=== PATIENT | female | born 1945 | race Hispanic/Latino ===

== ENCOUNTER 2016-11-04 21:59 | Inpatient (IN) | payer MEDICARE ==
[2016-11-04 21:59] VITALS: BMI 29.5
[2016-11-04] MEDS ORDERED: cefTRIAXone IV 1 gm in Dextros 1 GM in Dextrose 5% In Water 50 ML IVPB STA (22:47)
[2016-11-04 23:04] LABS: BASO # 0.1 K/uL (0.0-0.2); BASO % 0.6 % (0.0-2.0); EOS % 0.2 % (0.0-4.0); HEMATOCRIT 41.9 % (34.0-47.0); LYMPH # 0.8 K/uL (1.0-4.3); LYMPH % 4.3 % (20.0-40.0); MEAN CORPUSCULAR HEMOGLOBIN 28.2 pg (27.0-31.0); MEAN CORPUSCULAR HGB CONC 32.7 g/dL (33.0-37.0); MEAN PLATELET VOLUME 10.3 fL (7.2-11.7); MONO # 0.9 K/uL (0.0-0.8); MONO % 4.8 % (0.0-10.0); PLATELET COUNT 212 K/uL (130-400); RED CELL DISTRIBUTION WIDTH 14.7 % (11.5-14.5); WHITE BLOOD COUNT 18.5 K/uL (4.8-10.8)
[2016-11-04 23:09] LABS: MEAN CELL VOLUME 86.4 fL (81.0-99.0)
[2016-11-04] MEDS ORDERED: cefTRIAXone IV 1 gm in Dextros 50 ML IVPB ONE (23:19)
[2016-11-04 23:21] LABS: VENOUS BLOOD GAS PCO2 40 mmHg (40-60); VENOUS BLOOD PH 7.47 (7.32-7.43)
[2016-11-04 23:26] LABS: CHLORIDE 92 mmol/L (98-107); POTASSIUM 3.6 mmol/L (3.6-5.2); SODIUM 134 mmol/L (132-148)
[2016-11-04 23:28] LABS: GFR AFRICAN-AMERICAN > 60
[2016-11-04 23:29] LABS: ALB/GLOB RATIO 1.2 (1.0-2.1); ALKALINE PHOSPHATASE 118 U/L (38-126); ALT/SGPT 72 U/L (9-52); AST/SGOT 64 U/L (14-36); BILIRUBIN,TOTAL 2.3 mg/dL (0.2-1.3); BLOOD UREA NITROGEN 19 mg/dL (7-17); CALCIUM 8.9 mg/dl (8.6-10.4); CARBON DIOXIDE 25 mmol/L (22-30); GLUCOSE,RANDOM 158 mg/dL (65-105); TOTAL PROTEIN 8.1 g/dL (6.3-8.3)
[2016-11-04 23:46] LABS: INR 1.6
[2016-11-04 23:48] LABS: EOSINOPHIL 1 % (0-4); NEUTROPHIL 81 % (50-75); TOTAL CELLS COUNTED 100
[2016-11-04 23:49] LABS: LARGE PLATELETS PRESENT
[2016-11-04] MEDS ORDERED: Sodium Chloride 0.9% 1,000 ML IV ONE (23:53)
--- NOTE | 2016-11-05 00:18 | C.PDOC ---
History Of Present Illness A 71 y/o F c/o cramping abdominal pain but does not know how long. Pain is to the right leg with erythema and tenderness. Denies fever, chills, nausea, vomiting, diarrhea, weakness, numbness, vaginal bleeding, discharge, or any other complaints. Time Seen by Provider: 11/04/16 22:30 Chief Complaint (Nursing): Abdominal Pain History Per: Patient History/Exam Limitations: no limitations Onset/Duration Of Symptoms: Unknown Current Symptoms Are (Timing): Still Present Severity: Mild Radiation Of Pain To:: None Recent travel outside of the [place]: No Additional History Per: Patient Abnormal Vaginal Bleeding: No Past Medical History Reviewed: Historical Data, Nursing Documentation, Vital Signs Vital Signs: Last Vital Signs Temp 100.2 F H 11/04/16 22:30 Pulse 92 H 11/04/16 23:41 Resp 16 11/04/16 23:41 BP 108/78 11/04/16 23:41 Pulse Ox 96 11/05/16 00:36 - Medical History PMH: Asthma, Atrial Fibrillation, Bronchitis, Cardia Arrhythmia (atrial fib), Diabetes, Fractures (left hand), HTN, Hypercholesterolemia, Hypothyroidism, Rheumatoid Arthritis, Sleep Apnea Denies: Chronic Kidney Disease - [facility] Procedures ABDOMINAL WALL INCISION (01/07/15) CLOSURE SKIN & SUBCUTANEOUS NEC (08/03/13) DESTRUCT ABD WALL LESION (12/08/14) EXC LES SOFT TISSUE NEC (12/08/14) POST NASAL PAC FOR EPIST (09/18/12) TETANUS TOXOID ADMINIST (08/03/13) Family History: States: Unknown Family Hx, CAD - Social History Hx Tobacco Use: No Hx Alcohol Use: No Hx Substance Use: No - Immunization History Hx Tetanus Toxoid Vaccination: No Hx Influenza Vaccination: No Hx Pneumococcal Vaccination: Yes Review Of Systems Except As Marked, All Systems Reviewed And Found Negative. Constitutional: Negative for: Fever, Chills Gastrointestinal: Positive for: Abdominal Pain. Negative for: Nausea, Vomiting , Diarrhea Musculoskeletal: Positive for: Leg Pain (Right leg pain and erythema) Neurological: Negative for: Weakness, Numbness Physical Exam - Physical Exam Appears: Non-toxic, No Acute Distress, Other (Obese) Skin: Warm, Dry Head: Atraumatic, Normacephalic Gastrointestinal/Abdominal: Soft, Tenderness (vague ), Other (Dull to percussion ) Extremity: Tenderness (Tenderness and erythema between the ankle and ratliff, circumferential), Capillary Refill (<2secs) Extremity: Bilateral: Normal Color And Temperature Neurological/Psych: Oriented x3, Normal Speech, Normal Cognition ED Course And Treatment - Laboratory Results Result Diagrams: 11/04/16 22:59 11/04/16 22:59 Lab Interpretation: Abnormal (INR 1.5 subtheraputic for Coumadin for AF, Lactate 2.7 H) ECG: Interpreted By Me ECG Rhythm: Atrial Fibrillation ECG Interpretation: Normal, No Changes From Prior Rate From EC O2 Sat by Pulse Oximetry: 96 (RA) Pulse Ox Interpretation: Normal - Radiology CXR: Interpreted by Me CXR Interpretation: Yes: No Acute Disease - Other Rad abd x 2 X-Ray: Interpreted by Me (+FOS) Reevaluation Time: 00:16 Reassessment Condition: Improved - Physician Consult Information Outcome Of Conversation: 2300: d/w Dr. Parra- prior admitting MD, ok to med /surg. Pendin CT results. Medical Decision Making Medical Decision Making: Impression: A 71 y/o F c/o cramping abdominal pain but does not know how long. Pain is to the right leg with erythema and tenderness. cellulitis R lower leg: Rocephin IV Belly pain: CT pending Subtheraputic INR for AF; consider re-loading or increasing dose. ALEKSANDRA; pending CPAP for sleep. 0030: signed out to Dr. Tee, and again d/w Dr. Parra- pending CT abd/ pelvis and results. Disposition Doctor Will See Patient In The: Hospital Counseled Patient/Family Regarding: Studies Performed, Diagnosis - Disposition Disposition: HOSPITALIZED Disposition Time: 00:18 Condition: GOOD - Clinical Impression Clinical Impression: Abdominal pain, Cellulitis, leg, Constipation - Scribe Statement The provider has reviewed the documentation as recorded by the Scribe José Miguel rush All medical record entries made by the Carlosibmaggie were at my direction and personally dictated by me. I have reviewed the chart and agree that the record accurately reflects my personal performance of the history, physical exam, medical decision making, and the department course for this patient. I have also personally directed, reviewed, and agree with the discharge instructions and disposition. Physician Patient Turnover Patient Signed Over To: Michael Tee Handoff Comments: follow-up CT abd/pelvis and review with Dr. Parra.
[2016-11-05] MEDS ORDERED: Iodixanol 320 MG/ML 100 ML BOTTLE IV ONE (00:29)
[2016-11-05 01:48] LABS: VENOUS BLOOD GAS BASE EXCESS 3.7 mmol/L (0.0-2.0); VENOUS BLOOD GAS PCO2 39 mmHg (40-60); VENOUS BLOOD PH 7.46 (7.32-7.43)
[2016-11-05 02:08] LABS: RBC URINE 4 /hpf (0-3); URINE BACTERIA RARE (<OCC); URINE BILIRUBIN NEGATIVE (NEGATIVE); URINE BLOOD NEGATIVE (NEGATIVE); URINE COLOR Yellow (YELLOW); URINE GLUCOSE (UA) NORMAL (Normal); URINE KETONE NEGATIVE (NEGATIVE); URINE LEUKOCYTE ESTERASE 3+ Leu/uL (Negative); URINE PROTEIN 1+ mg/dL (NEGATIVE); URINE UROBILINOGEN NORMAL mg/dL (0.2-1.0); WBC URINE 97 /hpf (0-5)
--- NOTE | 2016-11-05 02:55 | CT ---
EXAM: CT Abdomen and Pelvis With Intravenous Contrast CLINICAL HISTORY: 71 years old, female; Pain; Abdominal pain; Prior surgery; Patient HX: 9-4-15 report faxed; Additional info: Jacoby magana'jimmy, TECHNIQUE: Axial computed tomography images of the abdomen and pelvis with intravenous contrast. This CT exam was performed using one or more of the following dose reduction techniques: automated exposure control, adjustment of the mA and/or kV according to patient size, and/or use of iterative reconstruction technique. Coronal and sagittal reformatted images were created and reviewed. CONTRAST: 100 mL of visipaque administered intravenously. COMPARISON: No relevant prior studies available. Reference is made to a report from an examination performed in 2015, for which the images were not available. FINDINGS: Lower thorax: The bilateral lung bases are clear. ABDOMEN: Liver: The liver is enlarged, and demonstrates decreased attenuation, consistent with steatosis, unchanged (by report). Gallbladder and bile ducts: The gallbladder is decompressed. No calcified stones. No significant intra- or extrahepatic biliary ductal dilation. Pancreas: Enhances homogeneously. Prominence of the main pancreatic duct is identified without andrez dilatation or a discrete mass identified. Spleen: Borderline enlargement, without acute findings. Adrenals: No acute findings. Kidneys and ureters: No acute findings. No hydronephrosis or renal calculi. No discrete solid mass. PELVIS: Bladder: No acute findings. Reproductive: No acute findings. Appendix: The appendix is not definitively visualized, however no pericecal inflammatory changes identified to suggest the presence of acute appendicitis. ABDOMEN and PELVIS: Stomach and bowel: No obstruction. Small bowel wall thickening but no surrounding inflammation or fluid to confirm an acute enteritis. Peritoneum: No significant fluid collection. No free air. Lymph nodes: No pathologically enlarged lymph nodes. Vasculature: Unremarkable. Bones: No acute fracture. IMPRESSION: Fatty infiltration of an enlarged liver. Small bowel wall thickening without surrounding inflammation or fluid to confirm an acute enteritis.
[2016-11-05] MEDS: Piperacillin/Tazobact 3.375 GM in Sodium Chloride 100 ML IVPB SCH ×3 (02:56→18:05)
[2016-11-05] MEDS: (Novolin R) Insulin Human Regular 100 units/ml vial SC SCH ×4 (07:38→22:41)
[2016-11-05] MEDS: Potassium Chloride 20 mEq ER Tab PO SCH (09:34)
[2016-11-05] MEDS ORDERED: DILTIAZEM 180 MG PO SCH (10:00)
[2016-11-05] MEDS ORDERED: DIGOXIN 125 MCG PO SCH (10:00)
[2016-11-05] MEDS: Oxycodone/Acetaminophen 5/325 mg Tab PO PRN ×2 (10:47→21:27)
--- NOTE | 2016-11-05 11:18 | RAD ---
PROCEDURE: Radiographs of the chest and abdomen (obstructive series) HISTORY: abd discomfort COMPARISON: No prior. TECHNIQUE: AP radiograph of the chest, with upright and supine radiographs of the abdomen. FINDINGS: CHEST: Lungs: Clear. Cardiovascular: Normal size heart. No pulmonary vascular congestion. Pleura: No pleural fluid. No pneumothorax. Other findings: None. ABDOMEN AND PELVIS: Bowel: [id number] constipation. Otherwise unremarkable bowel gas pattern. No evidence of mechanical obstruction. Free air: None. Bones: Unremarkable. Other findings: None. IMPRESSION: [id number] constipation. Otherwise unremarkable radiographs of chest and abdomen. No evidence of mechanical bowel obstruction.
--- NOTE | 2016-11-05 17:14 | CP.PCM.HP ---
History of Present Illness - History of Present Illness History of Present Illness: 71 y/o F c/o cramping abdominal pain but does not know how long. Pain is to the right leg with erythema and tenderness. Denies fever, chills, nausea, vomiting, diarrhea, weakness, numbness, vaginal bleeding, discharge, or any other complaints. Present on Admission - Present on Admission Any Indicators Present on Admission: No History of DVT/PE: No History of Uncontrolled Diabetes: No Urinary Catheter: No Decubitus Ulcer Present: No Review of Systems - Review of Systems All systems: reviewed and no additional remarkable complaints except (As mentioned in HPI) Past Patient History - Infectious Disease Hx of Infectious Diseases: None - Past Medical History & Family History Past Medical History?: Yes - Past Social History Smoking Status: Never Smoked - CARDIAC Hx Atrial Fibrillation: Yes Hx Cardia Arrhythmia: Yes (atrial fib) Hx Hypercholesterolemia: Yes Hx Hypertension: Yes - PULMONARY Hx Asthma: Yes Hx Bronchitis: Yes Hx Sleep Apnea: Yes - NEUROLOGICAL Hx Neurological Disorder: No - HEENT Hx HEENT Problems: Yes Hx Cataracts: Yes (bilateral iol) - RENAL Hx Chronic Kidney Disease: No - ENDOCRINE/METABOLIC Hx Hypothyroidism: Yes - HEMATOLOGICAL/ONCOLOGICAL Hx Blood Disorders: No - INTEGUMENTARY Hx Dermatological Problems: No - MUSCULOSKELETAL/RHEUMATOLOGICAL Hx Falls: No Hx Fractures: Yes (left hand) Hx Rheumatoid Arthritis: Yes - GASTROINTESTINAL Hx Gastrointestinal Disorders: No - GENITOURINARY/GYNECOLOGICAL Hx Genitourinary Disorders: Yes Hx Urinary Tract Infection: Yes (chronic pt. states asymptomatic) - PSYCHIATRIC Hx Substance Use: No - SURGICAL HISTORY Hx Surgeries: Yes Hx Cataract Extraction: Yes (bilat eyes) Hx Joint Replacement: Yes (bilat knees) Hx Tubal Ligation: Yes (30 years ago) Other/Comment: 2 cyst removed near middle chest region [address] Villavicencio - ANESTHESIA Hx Anesthesia: Yes Hx Anesthesia Reactions: No Hx Malignant Hyperthermia: No Meds Home Medications: Home Medication List Medication Instructions Recorded Confirmed Type Potassium Chloride [K-Dur 20] 20 meq PO BID #60 tab 11/11/16 Rx Warfarin [Coumadin] 8 mg PO DAILY #30 tab 11/11/16 Rx Allergies/Adverse Reactions: Allergies Allergy/AdvReac Type Severity Reaction Status Date / Time pregabalin [From Lyrica] Allergy Verified 01/02/16 13:11 Physical Exam - Head Exam Head Exam: NORMAL INSPECTION - Eye Exam Eye Exam: Normal appearance - ENT Exam ENT Exam: Mucous Membranes Moist - Respiratory Exam Respiratory Exam: Clear to Auscultation Bilateral, NORMAL BREATHING PATTERN - Cardiovascular Exam Cardiovascular Exam: REGULAR RHYTHM, +S1, +S2 - GI/Abdominal Exam GI & Abdominal Exam: Normal Bowel Sounds, Soft - Extremities Exam Additional comments: Right lower extremity edema, erythema, tenderness and warmth to touch - Neurological Exam Neurological exam: Alert, Oriented x3 - Psychiatric Exam Psychiatric exam: Normal Affect, Normal Mood - Skin Skin Exam: Warm Results - Vital Signs Recent Vital Signs: Last Vital Signs Temp 98.7 F 11/05/16 07:36 Pulse 89 11/05/16 07:36 Resp 20 11/05/16 07:36 BP 147/88 11/05/16 07:36 Pulse Ox 96 11/05/16 07:36 - Labs Result Diagrams: 11/10/16 07:03 11/11/16 06:23 Labs: Laboratory Results - last 24 hr 11/05/16 11/05/16 11/05/16 01:43 01:46 06:06 pO2 44 VBG pH 7.46 H VBG pCO2 39 L VBG HCO3 27.4 VBG Total CO2 28.9 H VBG O2 Sat (Calc) 88.2 H VBG Base Excess 3.7 H VBG Potassium 3.6 Sodium 137.0 Chloride 101.0 Glucose 155 H Lactate 2.1 POC Glucose (mg/dL) 151 H Venous Blood Potassium 3.6 Urine Color Yellow Urine Clarity Clear Urine pH 7.0 Ur Specific [place] 1.009 Urine Protein 1+ H Urine Glucose (UA) Normal Urine Ketones Negative Urine Blood Negative Urine Nitrate Positive H Urine Bilirubin Negative Urine Urobilinogen Normal Ur Leukocyte Esterase 3+ H Urine WBC (Auto) 97 H Urine RBC (Auto) 4 H Ur Squamous Epith Cells < 1 Urine Bacteria Rare 11/05/16 11/05/16 11:33 16:24 pO2 VBG pH VBG pCO2 VBG HCO3 VBG Total CO2 VBG O2 Sat (Calc) VBG Base Excess VBG Potassium Sodium Chloride Glucose Lactate POC Glucose (mg/dL) 149 H 107 Venous Blood Potassium Urine Color Urine Clarity Urine pH Ur Specific [place] Urine Protein Urine Glucose (UA) Urine Ketones Urine Blood Urine Nitrate Urine Bilirubin Urine Urobilinogen Ur Leukocyte Esterase Urine WBC (Auto) Urine RBC (Auto) Ur Squamous Epith Cells Urine Bacteria Assessment & Plan - Assessment and Plan (Free Text) Assessment: Right lower extremity cellulitis A. fib Hypokalemia Asthma IV Vanco and Zosyn Plan cultures Follow-up Vanco levels ID consult Right lower extremity Doppler Replace potassium Bronchodilators Dose daily Coumadin playground monitor
[2016-11-05] MEDS: Digoxin 125 mcg (0.125 mg) Tab PO SCH (18:07)
[2016-11-06] MEDS: Piperacillin/Tazobact 3.375 GM in Sodium Chloride 100 ML IVPB SCH ×3 (01:25→18:14)
[2016-11-06 07:16] LABS: BASO # 0.1 K/uL (0.0-0.2); BASO % 0.9 % (0.0-2.0); EOS # 0.2 K/uL (0.0-0.7); EOS % 2.1 % (0.0-4.0); HEMATOCRIT 38.8 % (34.0-47.0); LYMPH # 1.1 K/uL (1.0-4.3); MEAN CELL VOLUME 86.2 fL (81.0-99.0); MEAN CORPUSCULAR HGB CONC 33.7 g/dL (33.0-37.0); MEAN PLATELET VOLUME 10.2 fL (7.2-11.7); MONO # 0.9 K/uL (0.0-0.8); MONO % 8.6 % (0.0-10.0); RED CELL DISTRIBUTION WIDTH 14.8 % (11.5-14.5); WHITE BLOOD COUNT 10.1 K/uL (4.8-10.8)
[2016-11-06 07:22] LABS: INR 1.5
[2016-11-06 07:37] LABS: CHLORIDE 98 mmol/L (98-107); POTASSIUM 2.6 mmol/L (3.6-5.2); SODIUM 140 mmol/L (132-148)
[2016-11-06 07:39] LABS: BILIRUBIN,TOTAL 3.1 mg/dL (0.2-1.3); GFR AFRICAN-AMERICAN > 60
[2016-11-06 07:40] LABS: ALKALINE PHOSPHATASE 96 U/L (38-126); ALT/SGPT 69 U/L (9-52); AST/SGOT 51 U/L (14-36); BLOOD UREA NITROGEN 13 mg/dL (7-17); CALCIUM 8.2 mg/dl (8.6-10.4); CARBON DIOXIDE 27 mmol/L (22-30); GLUCOSE,RANDOM 123 mg/dL (65-105)
[2016-11-06] MEDS: (Novolin R) Insulin Human Regular 100 units/ml vial SC SCH ×4 (08:15→22:01)
[2016-11-06] MEDS: diltiaZEM 180 mg/24 Hours CD Cap PO SCH (09:37)
[2016-11-06] MEDS: Potassium Chloride 20 mEq ER Tab PO SCH (09:37)
--- NOTE | 2016-11-06 14:17 | CP.PCM.PN ---
Subjective - Date & Time of Evaluation Date of Evaluation: 11/06/16 Time of Evaluation: 14:17 - Subjective Subjective: Patient seen and examined No events overnight Reports right lower extremity pain Objective - Vital Signs/Intake and Output Vital Signs (last 24 hours): Temp Pulse Resp BP Pulse Ox 98.1 F 73 18 119/69 95 11/06/16 07:30 11/06/16 09:48 11/06/16 07:30 11/06/16 09:48 11/06/16 07:30 Intake and Output: 11/06/16 11/06/16 06:59 18:59 Intake Total 160 Balance 160 - Medications Medications: Current Medications Allopurinol (Zyloprim) 300 mg PO DAILY [facility] Last Admin: 11/06/16 09:38 Dose: 300 mg Digoxin (Lanoxin) 0.125 mg PO DAILY@1800 [facility] Last Admin: 11/05/16 18:07 Dose: 0.125 mg Diltiazem HCl (Cardizem Cd) 180 mg PO DAILY [facility] Last Admin: 11/06/16 09:37 Dose: 180 mg Gabapentin (Neurontin) 100 mg PO TID [facility] Last Admin: 11/06/16 14:13 Dose: 100 mg Glimepiride (Amaryl) 4 mg PO BID [facility] Last Admin: 11/06/16 09:38 Dose: 4 mg Piperacillin Sod/Tazobactam (Sod 3.375 gm/ Sodium Chloride) 100 mls @ 200 mls/ hr IVPB Q8H [facility] Last Admin: 11/06/16 09:36 Dose: 200 mls/hr Vancomycin HCl 1,000 mg/ (Sodium Chloride) 250 mls @ 166.6 mls/hr IVPB Q12H [facility] Last Admin: 11/06/16 14:13 Dose: 166.6 mls/hr Insulin Human Regular (Novolin R) 0 unit SC ACHS ANITA PRN Reason: Protocol Last Admin: 11/06/16 12:53 Dose: 2 unit Oxycodone/Acetaminophen (Percocet 5/325 Mg Tab) 1 tab PO Q6H PRN PRN Reason: Pain, Stop: 11/08/16 10:02 Last Admin: 11/05/16 21:27 Dose: 1 tab Potassium Chloride (K-Dur 20 Meq Er Tab) 20 meq PO DAILY [facility] Last Admin: 11/06/16 09:37 Dose: 20 meq Sitagliptin Phosphate (Januvia) 100 mg PO DAILY [facility] Last Admin: 11/06/16 09:38 Dose: 100 mg Torsemide (Demadex) 100 mg PO DAILY [facility] Last Admin: 11/06/16 09:43 Dose: 100 mg Warfarin Sodium (Coumadin) 5 mg PO [facility] - Labs Labs: 11/06/16 07:08 11/06/16 07:08 PT 16.7 SECONDS (9.7-12.2) H 11/06/16 07:08 INR 1.5 11/06/16 07:08 APTT 30 SECONDS (21-34) 11/06/16 07:08 - Head Exam Head Exam: NORMAL INSPECTION - Eye Exam Eye Exam: Normal appearance - ENT Exam ENT Exam: Mucous Membranes Moist - Respiratory Exam Respiratory Exam: Clear to Ausculation Bilateral, NORMAL BREATHING PATTERN - Cardiovascular Exam Cardiovascular Exam: REGULAR RHYTHM, +S2 - GI/Abdominal Exam GI & Abdominal Exam: Soft, Normal Bowel Sounds - Neurological Exam Neurological Exam: Oriented x3 Assessment and Plan - Assessment and Plan (Free Text) Assessment: Right lower extremity cellulitis A. fib Hypokalemia Asthma IV Vanco and Zosyn Follow-up Vanco levels ID consult appreciated Right lower extremity Doppler is negative for DVT Potassium supplementation Bronchodilators Dose daily Coumadin Check INR in the morning DVT GI prophylaxis
[2016-11-06] MEDS ORDERED: Potassium Chloride 20 mEq/15 ml LIQ UD PO ONE (14:19)
[2016-11-06 16:24] LABS: CHLORIDE 98 mmol/L (98-107); POTASSIUM 3.8 mmol/L (3.6-5.2); SODIUM 139 mmol/L (132-148)
[2016-11-06 16:26] LABS: GFR AFRICAN-AMERICAN > 60
[2016-11-06 16:27] LABS: ALKALINE PHOSPHATASE 95 U/L (38-126); ALT/SGPT 68 U/L (9-52); AST/SGOT 40 U/L (14-36); BILIRUBIN,TOTAL 2.7 mg/dL (0.2-1.3); BLOOD UREA NITROGEN 14 mg/dL (7-17); CALCIUM 8.5 mg/dl (8.6-10.4); CARBON DIOXIDE 27 mmol/L (22-30); GLUCOSE,RANDOM 139 mg/dL (65-105)
--- NOTE | 2016-11-06 16:27 | CP.PCM.CON ---
History of Present Illness - History of Present Illness History of Present Illness: A 71 y/o F admitted with fever abdominal pain and severe right leg cellulitis associated with rigors stared empirically on vanco / zosyn with some improvement remains bed bound and right leg still swollen / red cultures are pending - Medical History PMH: Asthma, Atrial Fibrillation, Bronchitis, Cardia Arrhythmia (atrial fib), Diabetes, Fractures (left hand), HTN, Hypercholesterolemia, Hypothyroidism, Rheumatoid Arthritis, Sleep Apnea, bilat TKR's Denies: Chronic Kidney Disease - [facility] Procedures ABDOMINAL WALL INCISION (01/07/15) CLOSURE SKIN & SUBCUTANEOUS NEC (08/03/13) DESTRUCT ABD WALL LESION (12/08/14) EXC LES SOFT TISSUE NEC (12/08/14) POST NASAL PAC FOR EPIST (09/18/12) TETANUS TOXOID ADMINIST (08/03/13) Review of Systems - Review of Systems All systems: reviewed and no additional remarkable complaints except - Constitutional Constitutional: As Per HPI, Anorexia, Fever, Malaise, Weakness - EENT Eyes: absent: As Per HPI, Blind Spots, Blurred Vision, Change in Vision, Decreased Night Vision, Diplopia, Discharge, Dry Eye, Exophthalmos, Floaters, Irritation, Itchy Eyes, Loss of Peripheral Vision, Pain, Photophobia, Requires Corrective Lenses, Sees Flashes, Spots in Vision, Tunnel Vision, Other Visual Disturbances, Loss of Vision, Other Ears: absent: As Per HPI, Decreased Hearing, Ear Discharge, Ear Pain, Tinnitus, Abnormal Hearing, Disequilibrium, Dizziness, Other Nose/Mouth/Throat: absent: As Per HPI, Epistaxis, Nasal Congestion, Nasal Discharge, Nasal Obstruction, Nasal Trauma, Nose Pain, Post Nasal Drip, Sinus Pain, Sinus Pressure, Bleeding Gums, Change in Voice, Dental Pain, Dry Mouth, Dysphagia, Halitosis, Hoarsness, Lip Swelling, Mouth Lesions, Mouth Pain, Odynophagia, Sore Throat, Throat Swelling, Tongue Swelling, Facial Pain, Neck Pain, Neck Mass, Other - Breasts Breasts: absent: As Per HPI, Change in Shape, Mass, Pain, Nipple Discharge, Nipple Inversion, Skin Changes, Swelling, Other - Cardiovascular Cardiovascular: absent: As Per HPI, Acrocyanosis, Chest Pain, Chest Pain at Rest , Chest Pain with Activity, Claudication, Diaphoresis, Dyspnea, Dyspnea on Exertion, Edema, Irregular Heart Rhythm, Pain Radiating to Arm/Neck/Jaw, Leg Edema, Leg Ulcers, Lightheadedness, Orthopnea, Palpitations, Paroxysmal Nocturnal Dyspnea, Pedal Edema, Radiating Pain, Rapid Heart Rate, Slow Heart Rate, Syncope, Other - Respiratory Respiratory: absent: As Per HPI, Cough, Dyspnea, Hemoptysis, Dyspnea on Exertion , Wheezing, Snoring, Stridor, Pain on Inspiration, Chest Congestion, Excessive Mucous Production, Change in Mucous Color, Pain with Coughing, Other - Gastrointestinal Gastrointestinal: Abdominal Pain - Genitourinary Genitourinary: absent: As Per HPI, Change in Urinary Stream, Difficulty Urinating, Dysuria, Flank Pain, Hematuria, Pyuria, Nocturia, Urinary Incontinence, Urinary Frequency, Urinary Hesitance, Urinary Urgency, Voiding Freq/Small Amts, Freq UTI, Hx Renal/Bladder Calculi, Hx /Renal Surgery, Bladder Distension, Other - Reproductive: Female Reproductive:Female: absent: As Per HPI, Amenorrhea, Amenorrhea/ Control, Currently Menstual, Cycle <21 Days, Cycle >35 Days, Cycle Variable, Menses 1-7 Days, Menses >/= 8 Days, Menses Variable, Cycle > 4 Weeks Between, No Menses for 6 Months, Heavy Menses, Light Menses, Normal Menses, Spotting Between Cycles , S/P Hysterectomy, Menopausal, Post Menopausal, Premenarche, Abnormal Vaginal Bleeding, Dysmenorrhea, Dyspareunia, Genital Lesions, Genital Pruritis, Pelvic Pain, Prolapse Symptoms, Sexual Dysfunction, Vaginal Discharge, Vaginal Dryness , Vaginal Odor, Vaginal Pruritis, Other - Menstruation Menstruation: absent: As Per HPI, Amenorrhea, Amenorrhea/ Control, Currently Menstual, Cycle <21 Days, Cycle >35 Days, Cycle Variable, Menses 1-7 Days, Menses >/= 8 Days, Menses Variable, Cycle > 4 Weeks Between, No Menses for 6 Months, Heavy Menses, Light Menses, Normal Menses, Spotting Between Cycles , S/P Hysterectomy, Menopausal, Post Menopausal, Premenarche, Abnormal Vaginal Bleeding, Dysmenorrhea, Other - Musculoskeletal Musculoskeletal: As Per HPI - Integumentary Integumentary: As Per HPI, Skin Pain, Wounds - Neurological Neurological: As Per HPI, Sensory Deficit, Tingling - Psychiatric Psychiatric: absent: As Per HPI, Abnormal Sleep Pattern, Anhedonia, Anxiety, Auditory Hallucinations, Behavioral Changes, Change in Appetite, Change in Libido, Confusion, Depression, Difficulty Concentrating, Hallucinations, Homicidal Ideation, Hopelessness, Irritability, Memory Loss, Mood Swings, Panic Attacks, Paranoia, Suicidal Ideation, Visual Hallucinations, Tactile Hallucinations, Other - Endocrine Endocrine: absent: As Per HPI, Change in Body Appearance, Change in Libido, Cold Intolorance, Deepening of Voice, Excessive Sweating, Fatigue, Flushing, Heat Intolorance, Increase in Ring/Shoe/Hat Size, Palpitations, Polydipsia, Polyphagia, Polyuria, Other - Hematologic/Lymphatic Hematologic: absent: As Per HPI, Easy Bleeding, Easy Bruising, Lymphadenopathy, Other Past Patient History - Infectious Disease Hx of Infectious Diseases: None - Past Medical History & Family History Past Medical History?: Yes - Past Social History Smoking Status: Never Smoked - CARDIAC Hx Atrial Fibrillation: Yes Hx Cardia Arrhythmia: Yes (atrial fib) Hx Hypercholesterolemia: Yes Hx Hypertension: Yes - PULMONARY Hx Asthma: Yes Hx Bronchitis: Yes Hx Sleep Apnea: Yes - NEUROLOGICAL Hx Neurological Disorder: No - HEENT Hx HEENT Problems: Yes Hx Cataracts: Yes (bilateral iol) - RENAL Hx Chronic Kidney Disease: No - ENDOCRINE/METABOLIC Hx Hypothyroidism: Yes - HEMATOLOGICAL/ONCOLOGICAL Hx Blood Disorders: No - INTEGUMENTARY Hx Dermatological Problems: No - MUSCULOSKELETAL/RHEUMATOLOGICAL Hx Falls: No Hx Fractures: Yes (left hand) Hx Rheumatoid Arthritis: Yes - GASTROINTESTINAL Hx Gastrointestinal Disorders: No - GENITOURINARY/GYNECOLOGICAL Hx Genitourinary Disorders: Yes Hx Urinary Tract Infection: Yes (chronic pt. states asymptomatic) - PSYCHIATRIC Hx Substance Use: No - SURGICAL HISTORY Hx Surgeries: Yes Hx Cataract Extraction: Yes (bilat eyes) Hx Joint Replacement: Yes (bilat knees) Hx Tubal Ligation: Yes (30 years ago) Other/Comment: 2 cyst removed near middle chest region [address] Villavicencio - ANESTHESIA Hx Anesthesia: Yes Hx Anesthesia Reactions: No Hx Malignant Hyperthermia: No Meds Allergies/Adverse Reactions: Allergies Allergy/AdvReac Type Severity Reaction Status Date / Time pregabalin [From Lyrica] Allergy Verified 01/02/16 13:11 - Medications Medications: Current Medications Allopurinol (Zyloprim) 300 mg PO DAILY [facility] Last Admin: 11/06/16 09:38 Dose: 300 mg Digoxin (Lanoxin) 0.125 mg PO DAILY@1800 [facility] Last Admin: 11/05/16 18:07 Dose: 0.125 mg Diltiazem HCl (Cardizem Cd) 180 mg PO DAILY [facility] Last Admin: 11/06/16 09:37 Dose: 180 mg Gabapentin (Neurontin) 100 mg PO TID [facility] Last Admin: 11/06/16 14:13 Dose: 100 mg Glimepiride (Amaryl) 4 mg PO BID [facility] Last Admin: 11/06/16 09:38 Dose: 4 mg Piperacillin Sod/Tazobactam (Sod 3.375 gm/ Sodium Chloride) 100 mls @ 200 mls/ hr IVPB Q8H [facility] Last Admin: 11/06/16 09:36 Dose: 200 mls/hr Vancomycin/Sodium Chloride (Vancocin) 1 gm in 200 mls @ 166.6 mls/hr IVPB Q12H [facility] Insulin Human Regular (Novolin R) 0 unit SC ACHS [facility] PRN Reason: Protocol Last Admin: 11/06/16 12:53 Dose: 2 unit Oxycodone/Acetaminophen (Percocet 5/325 Mg Tab) 1 tab PO Q6H PRN PRN Reason: Pain, Stop: 11/08/16 10:02 Last Admin: 11/05/16 21:27 Dose: 1 tab Potassium Chloride (K-Dur 20 Meq Er Tab) 20 meq PO DAILY [facility] Last Admin: 11/06/16 09:37 Dose: 20 meq Sitagliptin Phosphate (Januvia) 100 mg PO DAILY [facility] Last Admin: 11/06/16 09:38 Dose: 100 mg Torsemide (Demadex) 100 mg PO DAILY [facility] Last Admin: 11/06/16 09:43 Dose: 100 mg Warfarin Sodium (Coumadin) 5 mg PO 1800 [facility] Stop: 11/06/16 18:01 Physical Exam - Constitutional Appears: Non-toxic, Chronically Ill - Head Exam Head Exam: ATRAUMATIC, NORMAL INSPECTION, NORMOCEPHALIC - Eye Exam Eye Exam: PERRL. absent: Scleral icterus - ENT Exam ENT Exam: Mucous Membranes Dry, Normal External Ear Exam, Normal Oropharynx - Neck Exam Neck exam: Negative for: Lymphadenopathy - Respiratory Exam Respiratory Exam: Decreased Breath Sounds, Clear to Auscultation Bilateral - Cardiovascular Exam Cardiovascular Exam: REGULAR RHYTHM, +S1, +S2 - GI/Abdominal Exam GI & Abdominal Exam: Diminished Bowel Sounds, Distended, Soft. absent: Tenderness - Rectal Exam Rectal Exam: Deferred - Exam Exam: NORMAL INSPECTION - Extremities Exam Extremities exam: Positive for: pedal edema, tenderness, pedal pulses present. Negative for: calf tenderness, normal inspection Additional comments: redness and swelling right leg below knee / not related to incision site of right TKR - Back Exam Back exam: absent: CVA tenderness (L), CVA tenderness (R) - Neurological Exam Neurological exam: Alert, CN II-XII Intact, Oriented x3, Reflexes Normal - Psychiatric Exam Psychiatric exam: Normal Mood - Skin Skin Exam: Dry Results - Vital Signs Recent Vital Signs: Last Vital Signs Temp 97.9 F 11/06/16 15:08 Pulse 74 11/06/16 15:08 Resp 20 11/06/16 15:08 BP 120/81 11/06/16 15:08 Pulse Ox 97 11/06/16 15:08 - Labs Result Diagrams: 11/06/16 07:08 11/06/16 07:08 Labs: Laboratory Results - last 24 hr 11/05/16 11/05/16 11/06/16 16:24 22:05 06:28 WBC RBC Hgb Hct MCV MCH MCHC RDW Plt Count MPV Neut % (Auto) Lymph % (Auto) [place] % (Auto) Eos % (Auto) Baso % (Auto) Neut # Lymph # [place] # Eos # Baso # PT INR APTT Sodium Potassium Chloride Carbon Dioxide Anion Gap BUN Creatinine Est GFR ( Amer) Est GFR (Non-Af Amer) POC Glucose (mg/dL) 107 112 H 125 H Random Glucose Calcium Total Bilirubin AST ALT Alkaline Phosphatase Total Protein Albumin Globulin Albumin/Globulin Ratio 11/06/16 11/06/16 11/06/16 07:08 07:08 07:08 WBC 10.1 RBC 4.50 Hgb 13.1 Hct 38.8 MCV 86.2 MCH 29.0 MCHC 33.7 RDW 14.8 H Plt Count 178 MPV 10.2 Neut % (Auto) 77.4 H Lymph % (Auto) 11.0 L [place] % (Auto) 8.6 Eos % (Auto) 2.1 Baso % (Auto) 0.9 Neut # 7.8 H Lymph # 1.1 [place] # 0.9 H Eos # 0.2 Baso # 0.1 PT 16.7 H INR 1.5 APTT 30 Sodium 140 Potassium 2.6 L Chloride 98 Carbon Dioxide 27 Anion Gap 18 BUN 13 Creatinine 0.8 Est GFR ( Amer) > 60 Est GFR (Non-Af Amer) > 60 POC Glucose (mg/dL) Random Glucose 123 H Calcium 8.2 L Total Bilirubin 3.1 H AST 51 H D ALT 69 H Alkaline Phosphatase 96 Total Protein 7.0 Albumin 3.5 D Globulin 3.4 Albumin/Globulin Ratio 1.0 11/06/16 11:16 WBC RBC Hgb Hct MCV MCH MCHC RDW Plt Count MPV Neut % (Auto) Lymph % (Auto) [place] % (Auto) Eos % (Auto) Baso % (Auto) Neut # Lymph # [place] # Eos # Baso # PT INR APTT Sodium Potassium Chloride Carbon Dioxide Anion Gap BUN Creatinine Est GFR ( Amer) Est GFR (Non-Af Amer) POC Glucose (mg/dL) 193 H Random Glucose Calcium Total Bilirubin AST ALT Alkaline Phosphatase Total Protein Albumin Globulin Albumin/Globulin Ratio Assessment & Plan (1) Abdominal pain Status: Acute (2) Cellulitis, leg Status: Acute (3) Diabetes Status: Acute (4) MRSA (methicillin resistant Staphylococcus aureus) Status: Suspected Priority: High - Assessment and Plan (Free Text) Assessment: 71 yo female with multiple comorbidities including RA, HTN, DM, arrythmias as well as recurrent MRSA infections is admitted with cellulitis assoc with rigors and abd pain improving on current rx cultures of blood pending would recc cont IV rx for now
[2016-11-06] MEDS: Digoxin 125 mcg (0.125 mg) Tab PO SCH (18:28)
[2016-11-07] MEDS: Piperacillin/Tazobact 3.375 GM in Sodium Chloride 100 ML IVPB SCH ×2 (01:56→10:10)
[2016-11-07] MEDS: Vancomycin 1 gm/NS 200 ml 1 GM/200 ML BAG IVPB SCH ×2 (01:57→14:08)
[2016-11-07] MEDS: (Novolin R) Insulin Human Regular 100 units/ml vial SC SCH ×4 (08:14→21:36)
[2016-11-07] MEDS: Potassium Chloride 20 mEq ER Tab PO SCH (10:09)
[2016-11-07] MEDS: diltiaZEM 180 mg/24 Hours CD Cap PO SCH (10:10)
[2016-11-07] MEDS: Oxycodone/Acetaminophen 5/325 mg Tab PO PRN (10:19)
--- NOTE | 2016-11-07 12:25 | CP.PCM.PN ---
Subjective - Date & Time of Evaluation Date of Evaluation: 11/07/16 Time of Evaluation: 08:00 - Subjective Subjective: afeb c/o Diarrhea LFT's increased cellulitis less will d/c zosyn cont Vanco add cefepime GI eval Objective - Vital Signs/Intake and Output Vital Signs (last 24 hours): Temp Pulse Resp BP Pulse Ox 98 F 80 18 137/70 97 11/07/16 09:06 11/07/16 09:06 11/07/16 09:06 11/07/16 09:06 11/07/16 09:06 - Medications Medications: Current Medications Allopurinol (Zyloprim) 300 mg PO DAILY [facility] Last Admin: 11/07/16 10:09 Dose: 300 mg Digoxin (Lanoxin) 0.125 mg PO DAILY@1800 [facility] Last Admin: 11/06/16 18:28 Dose: 0.125 mg Diltiazem HCl (Cardizem Cd) 180 mg PO DAILY [facility] Last Admin: 11/07/16 10:10 Dose: 180 mg Gabapentin (Neurontin) 100 mg PO TID [facility] Last Admin: 11/07/16 10:09 Dose: 100 mg Glimepiride (Amaryl) 4 mg PO BID [facility] Last Admin: 11/07/16 10:09 Dose: 4 mg Guaifenesin/Dextromethorphan (Robitussin Dm) 5 ml PO Q6H PRN PRN Reason: Cough Vancomycin/Sodium Chloride (Vancocin) 1 gm in 200 mls @ 166.6 mls/hr IVPB Q12H [facility] Last Admin: 11/07/16 01:57 Dose: 166.6 mls/hr Insulin Human Regular (Novolin R) 0 unit SC ACHS [facility] PRN Reason: Protocol Last Admin: 11/07/16 08:14 Dose: 2 unit Oxycodone/Acetaminophen (Percocet 5/325 Mg Tab) 1 tab PO Q6H PRN PRN Reason: Pain, Stop: 11/08/16 10:02 Last Admin: 11/07/16 10:19 Dose: 1 tab Potassium Chloride (K-Dur 20 Meq Er Tab) 20 meq PO DAILY [facility] Last Admin: 11/07/16 10:09 Dose: 20 meq Sitagliptin Phosphate (Januvia) 100 mg PO DAILY [facility] Last Admin: 11/07/16 10:09 Dose: 100 mg Torsemide (Demadex) 100 mg PO DAILY [facility] Last Admin: 11/07/16 10:15 Dose: 100 mg - Labs Labs: 11/06/16 07:08 11/06/16 16:13 PT 16.7 SECONDS (9.7-12.2) H 11/06/16 07:08 INR 1.5 11/06/16 07:08 APTT 30 SECONDS (21-34) 11/06/16 07:08 - Constitutional Appears: Non-toxic, Chronically Ill - Head Exam Head Exam: NORMOCEPHALIC - Eye Exam Eye Exam: absent: Scleral icterus - ENT Exam ENT Exam: Mucous Membranes Dry, Normal External Ear Exam - Neck Exam Neck Exam: absent: Lymphadenopathy - Respiratory Exam Respiratory Exam: Decreased Breath Sounds, Clear to Ausculation Bilateral - Cardiovascular Exam Cardiovascular Exam: REGULAR RHYTHM - GI/Abdominal Exam GI & Abdominal Exam: Distended, Soft. absent: Tenderness Assessment and Plan (1) Abdominal pain Status: Acute (2) Cellulitis, leg Status: Acute (3) Diabetes Status: Acute (4) MRSA (methicillin resistant Staphylococcus aureus) Status: Suspected
--- NOTE | 2016-11-07 12:44 | CARD ---
APPROVED REPORT EKG Measurement Heart [id number] <Conclusion> Atrial fibrillation Right superior axis deviation Pulmonary disease pattern Septal infarct, age undetermined Abnormal ECG
[2016-11-07] MEDS: Cefepime IV 1 gm in Dextrose 1 GM/50 ML BAG IVPB SCH (14:00)
--- NOTE | 2016-11-07 17:27 | CP.PCM.PN ---
Subjective - Date & Time of Evaluation Date of Evaluation: 11/07/16 Time of Evaluation: 17:27 - Subjective Subjective: Patient seen and examined Improved erythema of right lower extremity Objective - Vital Signs/Intake and Output Vital Signs (last 24 hours): Temp Pulse Resp BP Pulse Ox 97.7 F 66 20 108/72 97 11/07/16 15:45 11/07/16 15:45 11/07/16 15:45 11/07/16 15:45 11/07/16 15:45 Intake and Output: 11/07/16 11/07/16 06:59 18:59 Intake Total 300 Balance 300 - Medications Medications: Current Medications Allopurinol (Zyloprim) 300 mg PO DAILY [facility] Last Admin: 11/07/16 10:09 Dose: 300 mg Digoxin (Lanoxin) 0.125 mg PO DAILY@1800 [facility] Last Admin: 11/06/16 18:28 Dose: 0.125 mg Diltiazem HCl (Cardizem Cd) 180 mg PO DAILY [facility] Last Admin: 11/07/16 10:10 Dose: 180 mg Gabapentin (Neurontin) 100 mg PO TID [facility] Last Admin: 11/07/16 16:21 Dose: 100 mg Glimepiride (Amaryl) 4 mg PO BID [facility] Last Admin: 11/07/16 10:09 Dose: 4 mg Guaifenesin/Dextromethorphan (Robitussin Dm) 5 ml PO Q6H PRN PRN Reason: Cough Vancomycin/Sodium Chloride (Vancocin) 1 gm in 200 mls @ 166.6 mls/hr IVPB Q12H [facility] Last Admin: 11/07/16 14:08 Dose: 166.6 mls/hr Cefepime HCl (Maxipime Iv 1 Gm Premix) 1 gm in 50 mls @ 100 mls/hr IVPB Q12H [facility] Last Admin: 11/07/16 14:00 Dose: 100 mls/hr Insulin Human Regular (Novolin R) 0 unit SC ACHS [facility] PRN Reason: Protocol Last Admin: 11/07/16 12:40 Dose: 2 unit Oxycodone/Acetaminophen (Percocet 5/325 Mg Tab) 1 tab PO Q6H PRN PRN Reason: Pain, Stop: 11/08/16 10:02 Last Admin: 11/07/16 10:19 Dose: 1 tab Potassium Chloride (K-Dur 20 Meq Er Tab) 20 meq PO DAILY [facility] Last Admin: 11/07/16 10:09 Dose: 20 meq Sitagliptin Phosphate (Januvia) 100 mg PO DAILY [facility] Last Admin: 11/07/16 10:09 Dose: 100 mg Torsemide (Demadex) 100 mg PO DAILY [facility] Last Admin: 11/07/16 10:15 Dose: 100 mg - Labs Labs: 11/06/16 07:08 11/06/16 16:13 PT 16.7 SECONDS (9.7-12.2) H 11/06/16 07:08 INR 1.5 11/06/16 07:08 APTT 30 SECONDS (21-34) 11/06/16 07:08 - Head Exam Head Exam: NORMAL INSPECTION - ENT Exam ENT Exam: Mucous Membranes Moist - Cardiovascular Exam Cardiovascular Exam: REGULAR RHYTHM, +S1, +S2 - GI/Abdominal Exam GI & Abdominal Exam: Soft, Normal Bowel Sounds - Extremities Exam Additional comments: Right lower extremity erythema and swelling - Neurological Exam Neurological Exam: Alert, Oriented x3 - Psychiatric Exam Psychiatric exam: Normal Affect, Normal Mood Assessment and Plan - Assessment and Plan (Free Text) Assessment: Right lower extremity cellulitis A. fib Hypokalemia Asthma IV Vanco and Zosyn Right lower extremity Doppler is negative for DVT Potassium supplementation Bronchodilators Dose daily Coumadin Follow INR DVT GI prophylaxis
[2016-11-07] MEDS: guaiFENesin DM 100 mg-10 mg/5 ml UD PO PRN (18:38)
[2016-11-07] MEDS: Digoxin 125 mcg (0.125 mg) Tab PO SCH (18:38)
[2016-11-07 20:04] LABS: INR 1.4
[2016-11-08] MEDS: Cefepime IV 1 gm in Dextrose 1 GM/50 ML BAG IVPB SCH ×3 (00:13→23:44)
[2016-11-08 07:29] LABS: INR 1.4
[2016-11-08] MEDS: (Novolin R) Insulin Human Regular 100 units/ml vial SC SCH ×4 (08:20→21:34)
--- NOTE | 2016-11-08 09:20 | US ---
HISTORY: elevated liver enzymes COMPARISON: CT abdomen and pelvis with contrast performed 11/05/16 TECHNIQUE: Sonographic evaluation of the right upper quadrant of the abdomen. FINDINGS: LIVER: Measures 23.8 cm in length. Echogenic liver may be seen in setting of hepatic parenchymal disease or fatty infiltration. No focal mass identified. The main portal vein appears patent with normal directional flow. No intrahepatic bile duct dilatation. GALLBLADDER: No gallstones. No gallbladder wall thickening or pericholecystic edema. Negative sonographic Moore's sign as assessed by the ticket taker. COMMON BILE DUCT: Measures 4 mm. PANCREAS: Not well-visualized. RIGHT KIDNEY: Measures 12.0 x 3.8 x 5.9 cm. No obstructing calculus or hydronephrosis identified. AORTA: Limited visualization appears grossly unremarkable. IVC: Limited visualization appears grossly unremarkable. OTHER FINDINGS: None . IMPRESSION: Hepatomegaly. Echogenic liver may be seen in setting of hepatic parenchymal disease or fatty infiltration.
[2016-11-08] MEDS: diltiaZEM 180 mg/24 Hours CD Cap PO SCH (10:44)
[2016-11-08] MEDS: Potassium Chloride 20 mEq ER Tab PO SCH (10:45)
[2016-11-08] MEDS: guaiFENesin DM 100 mg-10 mg/5 ml UD PO PRN (10:46)
--- NOTE | 2016-11-08 11:55 | CP.PCM.PN ---
Subjective - Date & Time of Evaluation Date of Evaluation: 11/08/16 Time of Evaluation: 10:00 - Subjective Subjective: afeb lft's slightly lower blood c/s neg cellulitis less Objective - Vital Signs/Intake and Output Vital Signs (last 24 hours): Temp Pulse Resp BP Pulse Ox 97.6 F 73 18 136/80 97 11/08/16 08:41 11/08/16 08:41 11/08/16 08:41 11/08/16 08:41 11/08/16 08:41 Intake and Output: 11/08/16 11/08/16 06:59 18:59 Intake Total 320 Balance 320 - Medications Medications: Current Medications Allopurinol (Zyloprim) 300 mg PO DAILY [facility] Last Admin: 11/08/16 10:45 Dose: 300 mg Digoxin (Lanoxin) 0.125 mg PO DAILY@1800 [facility] Last Admin: 11/07/16 18:38 Dose: 0.125 mg Diltiazem HCl (Cardizem Cd) 180 mg PO DAILY [facility] Last Admin: 11/08/16 10:44 Dose: 180 mg Gabapentin (Neurontin) 100 mg PO TID [facility] Last Admin: 11/08/16 10:44 Dose: 100 mg Glimepiride (Amaryl) 4 mg PO BID [facility] Last Admin: 11/08/16 10:44 Dose: 4 mg Guaifenesin/Dextromethorphan (Robitussin Dm) 5 ml PO Q6H PRN PRN Reason: Cough Last Admin: 11/08/16 10:46 Dose: 5 ml Vancomycin/Sodium Chloride (Vancocin) 1 gm in 200 mls @ 166.6 mls/hr IVPB Q12H [facility] Last Admin: 11/07/16 14:08 Dose: 166.6 mls/hr Cefepime HCl (Maxipime Iv 1 Gm Premix) 1 gm in 50 mls @ 100 mls/hr IVPB Q12H [facility] Last Admin: 11/08/16 00:13 Dose: 100 mls/hr Insulin Human Regular (Novolin R) 0 unit SC ACHS [facility] PRN Reason: Protocol Last Admin: 11/08/16 08:20 Dose: Not Given Potassium Chloride (K-Dur 20 Meq Er Tab) 20 meq PO DAILY [facility] Last Admin: 11/08/16 10:45 Dose: 20 meq Sitagliptin Phosphate (Januvia) 100 mg PO DAILY [facility] Last Admin: 11/08/16 10:50 Dose: 100 mg Torsemide (Demadex) 100 mg PO DAILY [facility] Last Admin: 11/08/16 10:47 Dose: 100 mg - Labs Labs: 11/06/16 07:08 11/06/16 16:13 PT 16.6 SECONDS (9.7-12.2) H 11/08/16 06:54 INR 1.4 11/08/16 06:54 APTT 30 SECONDS (21-34) 11/06/16 07:08 - Constitutional Appears: Non-toxic - Head Exam Head Exam: NORMOCEPHALIC - Eye Exam Eye Exam: absent: Scleral icterus - ENT Exam ENT Exam: Mucous Membranes Dry - Neck Exam Neck Exam: absent: Lymphadenopathy - Respiratory Exam Respiratory Exam: Decreased Breath Sounds - Cardiovascular Exam Cardiovascular Exam: REGULAR RHYTHM - GI/Abdominal Exam GI & Abdominal Exam: Distended - Rectal Exam Rectal Exam: Deferred - Exam Exam: NORMAL INSPECTION - Extremities Exam Extremities Exam: absent: Pedal Edema - Back Exam Back Exam: absent: CVA tenderness (L), CVA tenderness (R) Assessment and Plan (1) Abdominal pain Status: Acute (2) Cellulitis, leg Status: Acute (3) Diabetes Status: Acute (4) MRSA (methicillin resistant Staphylococcus aureus) Status: Suspected
[2016-11-08] MEDS: Vancomycin 1 gm/NS 200 ml 1 GM/200 ML BAG IVPB SCH (13:30)
--- NOTE | 2016-11-08 13:40 | VASCLAB ---
PROCEDURE: Right Lower Extremity Venous Duplex Exam. HISTORY: Leg pain PRIORS: None. TECHNIQUE: Right common femoral, femoral, popliteal and posterior tibial, peroneal and great saphenous veins were evaluated. Flow was assessed with color Doppler, compressibility, assessment of phasic flow and augmentation response. Report prepared by DELON Marvin, RVT FINDINGS: RIGHT: 1. Common Femoral Vein: 1.1. Compressibility - Fully compressible: Thrombus - None: Flow - Phasic: Augmentation -Normal: Reflux - None. 2. Femoral Vein: 2.1. Compressibility - Fully compressible: Thrombus - None: Flow - Phasic: Augmentation -Normal: Reflux - None. 3. Popliteal Vein: 3.1. Compressibility - Fully compressible: Thrombus - None: Flow - Phasic: Augmentation -Normal: Reflux - Severe. 4. Posterior Tibial Vein: 4.1. Compressibility - Fully compressible: Thrombus - None: Flow - Phasic: Augmentation -Normal: Reflux - None. 5. Peroneal Vein: 5.1. Compressibility - Fully compressible: Thrombus - None: Flow - Phasic: Augmentation -Normal: Reflux - None. 6. Great Saphenous Vein: 6.1. Compressibility - Fully compressible: Thrombus -None: Flow - Phasic: Augmentation - Normal: Reflux - None. OTHER FINDINGS: Severe valvular incompetence of the right popliteal vein. IMPRESSION: No evidence of deep or superficial vein thrombosis of the right lower extremity with excellent venous flow. Normal venous flow noted in the left common femoral vein.
--- NOTE | 2016-11-08 14:08 | CP.PCM.PN ---
Subjective - Date & Time of Evaluation Date of Evaluation: 11/08/16 Time of Evaluation: 14:08 - Subjective Subjective: Patient seen and examined No events overnight Objective - Vital Signs/Intake and Output Vital Signs (last 24 hours): Temp Pulse Resp BP Pulse Ox 97.6 F 73 18 136/80 97 11/08/16 08:41 11/08/16 08:41 11/08/16 08:41 11/08/16 08:41 11/08/16 08:41 Intake and Output: 11/08/16 11/08/16 06:59 18:59 Intake Total 320 Balance 320 - Medications Medications: Current Medications Allopurinol (Zyloprim) 300 mg PO DAILY [facility] Last Admin: 11/08/16 10:45 Dose: 300 mg Digoxin (Lanoxin) 0.125 mg PO DAILY@1800 [facility] Last Admin: 11/07/16 18:38 Dose: 0.125 mg Diltiazem HCl (Cardizem Cd) 180 mg PO DAILY [facility] Last Admin: 11/08/16 10:44 Dose: 180 mg Gabapentin (Neurontin) 100 mg PO TID [facility] Last Admin: 11/08/16 13:30 Dose: 100 mg Glimepiride (Amaryl) 4 mg PO BID [facility] Last Admin: 11/08/16 10:44 Dose: 4 mg Guaifenesin/Dextromethorphan (Robitussin Dm) 5 ml PO Q6H PRN PRN Reason: Cough Last Admin: 11/08/16 10:46 Dose: 5 ml Vancomycin/Sodium Chloride (Vancocin) 1 gm in 200 mls @ 166.6 mls/hr IVPB Q12H [facility] Last Admin: 11/07/16 14:08 Dose: 166.6 mls/hr Cefepime HCl (Maxipime Iv 1 Gm Premix) 1 gm in 50 mls @ 100 mls/hr IVPB Q12H [facility] Last Admin: 11/08/16 12:02 Dose: 100 mls/hr Vancomycin/Sodium Chloride (Vancocin) 1 gm in 200 mls @ 133.333 mls/hr IVPB Q24H [facility] Last Admin: 11/08/16 13:30 Dose: 133.333 mls/hr Insulin Human Regular (Novolin R) 0 unit SC ACHS [facility] PRN Reason: Protocol Last Admin: 11/08/16 12:16 Dose: 2 unit Potassium Chloride (K-Dur 20 Meq Er Tab) 20 meq PO DAILY [facility] Last Admin: 11/08/16 10:45 Dose: 20 meq Sitagliptin Phosphate (Januvia) 100 mg PO DAILY [facility] Last Admin: 11/08/16 10:50 Dose: 100 mg Torsemide (Demadex) 100 mg PO DAILY [facility] Last Admin: 11/08/16 10:47 Dose: 100 mg - Labs Labs: 11/06/16 07:08 11/06/16 16:13 PT 16.6 SECONDS (9.7-12.2) H 11/08/16 06:54 INR 1.4 11/08/16 06:54 APTT 30 SECONDS (21-34) 11/06/16 07:08 Assessment and Plan - Assessment and Plan (Free Text) Assessment: Right lower extremity cellulitis A. fib Hypokalemia Asthma IV Vanco and Zosyn Follow-up Vanco levels ID consult appreciated Right lower extremity Doppler is negative for DVT Potassium supplementation Bronchodilators Dose daily Coumadin Check INR in the morning DVT GI prophylaxis
[2016-11-08 17:40] LABS: INR 1.5
[2016-11-08] MEDS: Digoxin 125 mcg (0.125 mg) Tab PO SCH (17:59)
[2016-11-09] MEDS: Oxycodone/Acetaminophen 5/325 mg Tab PO PRN ×2 (00:11→09:56)
[2016-11-09 07:10] LABS: INR 1.6
[2016-11-09 07:21] LABS: ALB/GLOB RATIO 1.1 (1.0-2.1); BILIRUBIN,DIRECT 0.3 mg/dL (0.0-0.4); BILIRUBIN,TOTAL 1.3 mg/dL (0.2-1.3); TOTAL PROTEIN 6.8 g/dL (6.3-8.3)
[2016-11-09 07:22] LABS: CALCIUM 8.6 mg/dl (8.6-10.4)
[2016-11-09 08:01] LABS: POTASSIUM 2.5 mmol/L (3.6-5.2)
[2016-11-09] MEDS ORDERED: Potassium Chloride 20 mEq ER Tab PO ONE (08:15)
[2016-11-09] MEDS: (Novolin R) Insulin Human Regular 100 units/ml vial SC SCH ×4 (08:30→22:00)
[2016-11-09] MEDS: diltiaZEM 180 mg/24 Hours CD Cap PO SCH (09:35)
[2016-11-09] MEDS: guaiFENesin DM 100 mg-10 mg/5 ml UD PO PRN (09:36)
[2016-11-09] MEDS: Potassium Chloride 20 mEq ER Tab PO SCH (09:38)
[2016-11-09] MEDS: Cefepime IV 1 gm in Dextrose 1 GM/50 ML BAG IVPB SCH (12:06)
[2016-11-09] MEDS: Vancomycin 1 gm/NS 200 ml 1 GM/200 ML BAG IVPB SCH (15:00)
--- NOTE | 2016-11-09 16:39 | CP.PCM.PN ---
Subjective - Date & Time of Evaluation Date of Evaluation: 11/09/16 Time of Evaluation: 16:39 - Subjective Subjective: Patient seen and examined Improved swelling and erythema of the right lower extremity Objective - Vital Signs/Intake and Output Vital Signs (last 24 hours): Temp Pulse Resp BP Pulse Ox 98 F 69 18 126/74 96 11/09/16 09:02 11/09/16 09:02 11/09/16 09:02 11/09/16 09:02 11/09/16 09:02 - Medications Medications: Current Medications Allopurinol (Zyloprim) 300 mg PO DAILY [facility] Last Admin: 11/09/16 09:36 Dose: 300 mg Digoxin (Lanoxin) 0.125 mg PO DAILY@1800 [facility] Last Admin: 11/08/16 17:59 Dose: 0.125 mg Diltiazem HCl (Cardizem Cd) 180 mg PO DAILY [facility] Last Admin: 11/09/16 09:35 Dose: 180 mg Gabapentin (Neurontin) 100 mg PO TID [facility] Last Admin: 11/09/16 14:04 Dose: 100 mg Glimepiride (Amaryl) 4 mg PO BID [facility] Last Admin: 11/09/16 09:25 Dose: 4 mg Guaifenesin/Dextromethorphan (Robitussin Dm) 5 ml PO Q6H PRN PRN Reason: Cough Last Admin: 11/09/16 09:36 Dose: 5 ml Cefepime HCl (Maxipime Iv 1 Gm Premix) 1 gm in 50 mls @ 100 mls/hr IVPB Q12H [facility] Last Admin: 11/09/16 12:06 Dose: 100 mls/hr Vancomycin/Sodium Chloride (Vancocin) 1 gm in 200 mls @ 133.333 mls/hr IVPB Q24H [facility] Last Admin: 11/09/16 15:00 Dose: 133.333 mls/hr Insulin Human Regular (Novolin R) 0 unit SC ACHS [facility] PRN Reason: Protocol Last Admin: 11/09/16 12:18 Dose: 2 unit Potassium Chloride (K-Dur 20 Meq Er Tab) 20 meq PO DAILY [facility] Last Admin: 11/09/16 09:38 Dose: 20 meq Sitagliptin Phosphate (Januvia) 100 mg PO DAILY [facility] Last Admin: 11/09/16 09:36 Dose: 100 mg Torsemide (Demadex) 100 mg PO DAILY [facility] Last Admin: 11/09/16 09:37 Dose: 100 mg - Labs Labs: 11/06/16 07:08 11/09/16 06:43 PT 18.0 SECONDS (9.7-12.2) H 11/09/16 06:43 INR 1.6 11/09/16 06:43 APTT 30 SECONDS (21-34) 11/06/16 07:08 - Head Exam Head Exam: NORMAL INSPECTION - Respiratory Exam Respiratory Exam: Clear to Ausculation Bilateral, NORMAL BREATHING PATTERN - Cardiovascular Exam Cardiovascular Exam: REGULAR RHYTHM - GI/Abdominal Exam GI & Abdominal Exam: Soft, Normal Bowel Sounds - Extremities Exam Additional comments: Right lower extremity erythemaslowly improving - Neurological Exam Neurological Exam: Alert, Normal Gait Assessment and Plan - Assessment and Plan (Free Text) Assessment: Right lower extremity cellulitis A. fib Hypokalemia Asthma IV Vanco and Zosyn Right lower extremity Doppler is negative for DVT Potassium supplementation Bronchodilators Dose daily Coumadin Check INR in the morning DVT GI prophylaxis
[2016-11-09 17:07] VITALS: RESP 20
[2016-11-09] MEDS: Digoxin 125 mcg (0.125 mg) Tab PO SCH (17:43)
--- NOTE | 2016-11-09 18:12 | CP.PCM.PN ---
Subjective - Date & Time of Evaluation Date of Evaluation: 11/09/16 Time of Evaluation: 07:00 - Subjective Subjective: K VERY LOW IV RX IN PROGRESS CELLULITIS RESOLVING SLOWLY Objective - Vital Signs/Intake and Output Vital Signs (last 24 hours): Temp Pulse Resp BP Pulse Ox 97.7 F 63 20 113/73 95 11/09/16 16:00 11/09/16 16:00 11/09/16 16:00 11/09/16 16:00 11/09/16 16:00 Intake and Output: 11/09/16 11/09/16 06:59 18:59 Intake Total 400 Balance 400 - Medications Medications: Current Medications Allopurinol (Zyloprim) 300 mg PO DAILY [facility] Last Admin: 11/09/16 09:36 Dose: 300 mg Digoxin (Lanoxin) 0.125 mg PO DAILY@1800 [facility] Last Admin: 11/09/16 17:43 Dose: 0.125 mg Diltiazem HCl (Cardizem Cd) 180 mg PO DAILY [facility] Last Admin: 11/09/16 09:35 Dose: 180 mg Gabapentin (Neurontin) 100 mg PO TID [facility] Last Admin: 11/09/16 17:40 Dose: 100 mg Glimepiride (Amaryl) 4 mg PO BID [facility] Last Admin: 11/09/16 17:40 Dose: 4 mg Guaifenesin/Dextromethorphan (Robitussin Dm) 5 ml PO Q6H PRN PRN Reason: Cough Last Admin: 11/09/16 09:36 Dose: 5 ml Cefepime HCl (Maxipime Iv 1 Gm Premix) 1 gm in 50 mls @ 100 mls/hr IVPB Q12H [facility] Last Admin: 11/09/16 12:06 Dose: 100 mls/hr Vancomycin/Sodium Chloride (Vancocin) 1 gm in 200 mls @ 133.333 mls/hr IVPB Q24H [facility] Last Admin: 11/09/16 15:00 Dose: 133.333 mls/hr Insulin Human Regular (Novolin R) 0 unit SC ACHS [facility] PRN Reason: Protocol Last Admin: 11/09/16 12:18 Dose: 2 unit Potassium Chloride (K-Dur 20 Meq Er Tab) 20 meq PO DAILY [facility] Last Admin: 11/09/16 09:38 Dose: 20 meq Sitagliptin Phosphate (Januvia) 100 mg PO DAILY [facility] Last Admin: 11/09/16 09:36 Dose: 100 mg Torsemide (Demadex) 100 mg PO DAILY [facility] Last Admin: 11/09/16 09:37 Dose: 100 mg - Labs Labs: 11/06/16 07:08 11/09/16 06:43 PT 18.0 SECONDS (9.7-12.2) H 11/09/16 06:43 INR 1.6 11/09/16 06:43 APTT 30 SECONDS (21-34) 11/06/16 07:08 - Constitutional Appears: Non-toxic, Chronically Ill - Head Exam Head Exam: NORMOCEPHALIC - Eye Exam Eye Exam: PERRL. absent: Scleral icterus - ENT Exam ENT Exam: Mucous Membranes Dry - Neck Exam Neck Exam: absent: Lymphadenopathy - Respiratory Exam Respiratory Exam: Decreased Breath Sounds, Rhonchi - Cardiovascular Exam Cardiovascular Exam: REGULAR RHYTHM, +S1, +S2 - GI/Abdominal Exam GI & Abdominal Exam: Distended, Soft - Rectal Exam Rectal Exam: Deferred - Exam Exam: NORMAL INSPECTION Assessment and Plan (1) Abdominal pain Status: Acute (2) Cellulitis, leg Status: Acute (3) Diabetes Status: Acute (4) MRSA (methicillin resistant Staphylococcus aureus) Status: Suspected
[2016-11-10] MEDS: Cefepime IV 1 gm in Dextrose 1 GM/50 ML BAG IVPB SCH ×3 (00:54→23:55)
[2016-11-10 07:16] LABS: INR 1.9
[2016-11-10 07:25] LABS: BASO # 0.1 K/uL (0.0-0.2); BASO % 0.7 % (0.0-2.0); EOS # 0.3 K/uL (0.0-0.7); EOS % 3.6 % (0.0-4.0); HEMATOCRIT 40.4 % (34.0-47.0); LYMPH % 11.4 % (20.0-40.0); MEAN CELL VOLUME 86.5 fL (81.0-99.0); MEAN CORPUSCULAR HEMOGLOBIN 29.1 pg (27.0-31.0); MEAN CORPUSCULAR HGB CONC 33.7 g/dL (33.0-37.0); MEAN PLATELET VOLUME 9.7 fL (7.2-11.7); MONO # 0.6 K/uL (0.0-0.8); MONO % 7.4 % (0.0-10.0); NRBC % 0.1 % (0.0-2.0); RED CELL DISTRIBUTION WIDTH 15.2 % (11.5-14.5); WHITE BLOOD COUNT 8.7 K/uL (4.8-10.8)
[2016-11-10] MEDS: (Novolin R) Insulin Human Regular 100 units/ml vial SC SCH ×4 (07:42→21:28)
[2016-11-10 07:47] LABS: CHLORIDE 99 mmol/L (98-107); POTASSIUM 2.9 mmol/L (3.6-5.2); SODIUM 140 mmol/L (132-148)
[2016-11-10 07:50] LABS: ALB/GLOB RATIO 1.1 (1.0-2.1); ALKALINE PHOSPHATASE 91 U/L (38-126); ALT/SGPT 54 U/L (9-52); AST/SGOT 39 U/L (14-36); BILIRUBIN,TOTAL 1.3 mg/dL (0.2-1.3); BLOOD UREA NITROGEN 20 mg/dL (7-17); CALCIUM 8.7 mg/dl (8.6-10.4); CARBON DIOXIDE 26 mmol/L (22-30); GFR AFRICAN-AMERICAN > 60; GLUCOSE,RANDOM 169 mg/dL (65-105); TOTAL PROTEIN 7.4 g/dL (6.3-8.3)
[2016-11-10] MEDS: Potassium Chloride 20 mEq ER Tab PO SCH ×2 (11:12→12:12)
[2016-11-10] MEDS: diltiaZEM 180 mg/24 Hours CD Cap PO SCH (11:12)
[2016-11-10] MEDS: guaiFENesin DM 100 mg-10 mg/5 ml UD PO PRN (11:13)
[2016-11-10] MEDS: Vancomycin 1 gm/NS 200 ml 1 GM/200 ML BAG IVPB SCH (15:30)
[2016-11-10] MEDS: Digoxin 125 mcg (0.125 mg) Tab PO SCH (17:59)
--- NOTE | 2016-11-10 18:29 | CP.PCM.PN ---
Subjective - Date & Time of Evaluation Date of Evaluation: 11/10/16 Time of Evaluation: 18:29 - Subjective Subjective: Patient seen and examined No events overnight Objective - Vital Signs/Intake and Output Vital Signs (last 24 hours): Temp Pulse Resp BP Pulse Ox 98.2 F 63 20 122/77 97 11/10/16 16:00 11/10/16 16:00 11/10/16 16:00 11/10/16 16:00 11/10/16 16:00 Intake and Output: 11/10/16 11/10/16 06:59 18:59 Intake Total 60 450 Balance 60 450 - Medications Medications: Current Medications Allopurinol (Zyloprim) 300 mg PO DAILY [facility] Last Admin: 11/10/16 11:12 Dose: 300 mg Digoxin (Lanoxin) 0.125 mg PO DAILY@1800 [facility] Last Admin: 11/10/16 17:59 Dose: 0.125 mg Diltiazem HCl (Cardizem Cd) 180 mg PO DAILY [facility] Last Admin: 11/10/16 11:12 Dose: 180 mg Gabapentin (Neurontin) 100 mg PO TID [facility] Last Admin: 11/10/16 17:59 Dose: 100 mg Glimepiride (Amaryl) 4 mg PO BID [facility] Last Admin: 11/10/16 17:59 Dose: 4 mg Guaifenesin/Dextromethorphan (Robitussin Dm) 5 ml PO Q6H PRN PRN Reason: Cough Last Admin: 11/10/16 11:13 Dose: 5 ml Cefepime HCl (Maxipime Iv 1 Gm Premix) 1 gm in 50 mls @ 100 mls/hr IVPB Q12H [facility] Last Admin: 11/10/16 11:30 Dose: 100 mls/hr Vancomycin/Sodium Chloride (Vancocin) 1 gm in 200 mls @ 133.333 mls/hr IVPB Q24H [facility] Last Admin: 11/10/16 15:30 Dose: 133.333 mls/hr Insulin Human Regular (Novolin R) 0 unit SC ACHS [facility] PRN Reason: Protocol Last Admin: 11/10/16 17:16 Dose: Not Given Potassium Chloride (K-Dur 20 Meq Er Tab) 20 meq PO DAILY [facility] Last Admin: 11/10/16 11:12 Dose: 20 meq Potassium Chloride (K-Dur 20 Meq Er Tab) 20 meq PO DAILY [facility] Last Admin: 11/10/16 12:12 Dose: 20 meq Sitagliptin Phosphate (Januvia) 100 mg PO DAILY [facility] Last Admin: 11/10/16 11:12 Dose: 100 mg Torsemide (Demadex) 100 mg PO DAILY [facility] Last Admin: 11/10/16 11:16 Dose: 100 mg - Labs Labs: 11/10/16 07:03 11/10/16 07:03 PT 21.5 SECONDS (9.7-12.2) H 11/10/16 07:03 INR 1.9 11/10/16 07:03 APTT 30 SECONDS (21-34) 11/06/16 07:08 - Head Exam Head Exam: NORMAL INSPECTION - ENT Exam ENT Exam: Mucous Membranes Moist - Respiratory Exam Respiratory Exam: Clear to Ausculation Bilateral, NORMAL BREATHING PATTERN - Cardiovascular Exam Cardiovascular Exam: REGULAR RHYTHM, +S1, +S2 - GI/Abdominal Exam GI & Abdominal Exam: Soft, Normal Bowel Sounds - Extremities Exam Additional comments: Improving right lower extremity erythema - Neurological Exam Neurological Exam: Alert, Oriented x3 Assessment and Plan - Assessment and Plan (Free Text) Assessment: Right lower extremity cellulitis A. fib Hypokalemia Asthma IV Vanco and Zosyn Right lower extremity Doppler is negative for DVT Potassium supplementation Bronchodilators Dose daily Coumadin Check INR in the morning DVT GI prophylaxis
[2016-11-10] MEDS ORDERED: Potassium Chloride 20 mEq/15 ml LIQ UD PO STA (19:35)
[2016-11-11 06:47] LABS: INR 2.1
[2016-11-11 07:16] LABS: CHLORIDE 99 mmol/L (98-107); SODIUM 139 mmol/L (132-148)
[2016-11-11 07:18] LABS: ALB/GLOB RATIO 1.1 (1.0-2.1); ALKALINE PHOSPHATASE 87 U/L (38-126); AST/SGOT 47 U/L (14-36); BILIRUBIN,TOTAL 1.2 mg/dL (0.2-1.3); CARBON DIOXIDE 27 mmol/L (22-30); GFR AFRICAN-AMERICAN > 60; TOTAL PROTEIN 7.1 g/dL (6.3-8.3)
[2016-11-11 07:19] LABS: ALT/SGPT 56 U/L (9-52); BLOOD UREA NITROGEN 18 mg/dL (7-17); CALCIUM 8.4 mg/dl (8.6-10.4); GLUCOSE,RANDOM 149 mg/dL (65-105)
[2016-11-11] MEDS: (Novolin R) Insulin Human Regular 100 units/ml vial SC SCH ×3 (08:03→17:26)
[2016-11-11] MEDS: diltiaZEM 180 mg/24 Hours CD Cap PO SCH (10:07)
[2016-11-11] MEDS: guaiFENesin DM 100 mg-10 mg/5 ml UD PO PRN (10:08)
[2016-11-11] MEDS: Potassium Chloride 20 mEq ER Tab PO SCH ×2 (10:08)
[2016-11-11] MEDS: Cefepime IV 1 gm in Dextrose 1 GM/50 ML BAG IVPB SCH (11:30)
[2016-11-11] MEDS: Vancomycin 1 gm/NS 200 ml 1 GM/200 ML BAG IVPB SCH (14:00)
[2016-11-11] MEDS ORDERED: Potassium Chloride 20 mEq ER Tab PO SCH (15:00)
[2016-11-11 16:34] VITALS: BP 150/76; TEMP 97.9; O2SAT 96
--- NOTE | 2016-11-11 16:59 | CP.PCM.PN ---
Subjective - Date & Time of Evaluation Date of Evaluation: 11/11/16 Time of Evaluation: 16:59 - Subjective Subjective: PT SEEN BY DR. SHEARER AND CLEARED FOR D/C HOME TODAY. I SPOKE WITH DR. LUJAN RE ABX AND PER HIM THERE IS NO NEED FOR FURTHER ABX AT THIS TIME. PT TO CONTINUE COUMADIN 8 MG PO QD AND F/U WITH PMD AND DR. MUÑOZ EARLY NEXT WEEK. NO FURTHER ORDERS. Objective - Vital Signs/Intake and Output Vital Signs (last 24 hours): Temp Pulse Resp BP Pulse Ox 97.9 F 75 20 150/76 96 11/11/16 15:40 11/11/16 15:40 11/11/16 15:40 11/11/16 15:40 11/11/16 15:40 Intake and Output: 11/11/16 11/11/16 06:59 18:59 Intake Total 60 Balance 60 - Medications Medications: Current Medications Allopurinol (Zyloprim) 300 mg PO DAILY [facility] Last Admin: 11/11/16 10:08 Dose: 300 mg Digoxin (Lanoxin) 0.125 mg PO DAILY@1800 [facility] Last Admin: 11/10/16 17:59 Dose: 0.125 mg Diltiazem HCl (Cardizem Cd) 180 mg PO DAILY [facility] Last Admin: 11/11/16 10:07 Dose: 180 mg Gabapentin (Neurontin) 100 mg PO TID [facility] Last Admin: 11/11/16 14:00 Dose: 100 mg Glimepiride (Amaryl) 4 mg PO BID [facility] Last Admin: 11/11/16 10:07 Dose: 4 mg Guaifenesin/Dextromethorphan (Robitussin Dm) 5 ml PO Q6H PRN PRN Reason: Cough Last Admin: 11/11/16 10:08 Dose: 5 ml Cefepime HCl (Maxipime Iv 1 Gm Premix) 1 gm in 50 mls @ 100 mls/hr IVPB Q12H [facility] Last Admin: 11/11/16 11:30 Dose: 100 mls/hr Vancomycin/Sodium Chloride (Vancocin) 1 gm in 200 mls @ 133.333 mls/hr IVPB Q24H [facility] Last Admin: 11/11/16 14:00 Dose: 133.333 mls/hr Insulin Human Regular (Novolin R) 0 unit SC ACHS [facility] PRN Reason: Protocol Last Admin: 11/11/16 12:30 Dose: 2 unit Potassium Chloride (K-Dur 20 Meq Er Tab) 40 meq PO DAILY [facility] Last Admin: 11/11/16 15:59 Dose: 40 meq Sitagliptin Phosphate (Januvia) 100 mg PO DAILY [facility] Last Admin: 11/11/16 10:07 Dose: 100 mg Torsemide (Demadex) 100 mg PO DAILY [facility] Last Admin: 11/11/16 10:07 Dose: 100 mg - Labs Labs: 11/10/16 07:03 11/11/16 06:23 PT 23.7 SECONDS (9.7-12.2) H 11/11/16 06:23 INR 2.1 11/11/16 06:23 APTT 30 SECONDS (21-34) 11/06/16 07:08
[2016-11-11] MEDS: Digoxin 125 mcg (0.125 mg) Tab PO SCH (17:41)
[2016-11-11 17:42] VITALS: PULSE 72
[2016-11-11 18:01] VITALS: PULSE 72
--- NOTE | 2016-11-17 01:35 | CP.PCM.DIS ---
Provider - Provider Date of Admission: 11/05/16 00:14 Attending physician: Beth Major MD Time Spent in preparation of Discharge (in minutes): 25 Hospital Course - Lab Results Lab Results: Micro Results 11/05/16 20:00 Blood Blood Culture - Final NO GROWTH AFTER 5 DAYS 11/05/16 20:00 Blood Gram Stain - Final TEST NOT PERFORMED 11/05/16 20:00 Blood Blood Culture - Final NO GROWTH AFTER 5 DAYS 11/05/16 20:00 Blood Gram Stain - Final TEST NOT PERFORMED Most Recent Lab Values WBC 8.7 K/uL (4.8-10.8) 11/10/16 07:03 RBC 4.67 Mil/uL (3.80-5.20) 11/10/16 07:03 Hgb 13.6 g/dL (11.0-16.0) 11/10/16 07:03 Hct 40.4 % (34.0-47.0) 11/10/16 07:03 MCV 86.5 fL (81.0-99.0) 11/10/16 07:03 MCH 29.1 pg (27.0-31.0) 11/10/16 07:03 MCHC 33.7 g/dL (33.0-37.0) 11/10/16 07:03 RDW 15.2 % (11.5-14.5) H 11/10/16 07:03 Plt Count 246 K/uL (130-400) 11/10/16 07:03 MPV 9.7 fL (7.2-11.7) 11/10/16 07:03 Neut % (Auto) 76.9 % (50.0-75.0) H 11/10/16 07:03 Lymph % (Auto) 11.4 % (20.0-40.0) L 11/10/16 07:03 Stone % (Auto) 7.4 % (0.0-10.0) 11/10/16 07:03 Eos % (Auto) 3.6 % (0.0-4.0) 11/10/16 07:03 Baso % (Auto) 0.7 % (0.0-2.0) 11/10/16 07:03 Neut # 6.7 K/uL (1.8-7.0) 11/10/16 07:03 Lymph # 1.0 K/uL (1.0-4.3) 11/10/16 07:03 Stone # 0.6 K/uL (0.0-0.8) 11/10/16 07:03 Eos # 0.3 K/uL (0.0-0.7) 11/10/16 07:03 Baso # 0.1 K/uL (0.0-0.2) 11/10/16 07:03 Neutrophils % (Manual) 81 % (50-75) H 11/04/16 22:59 Band Neutrophils % 6 % (0-2) H 11/04/16 22:59 Lymphocytes % (Manual) 6 % (20-40) L 11/04/16 22:59 Monocytes % (Manual) 6 % (0-10) 11/04/16 22:59 Eosinophils % (Manual) 1 % (0-4) 11/04/16 22:59 Platelet Estimate Normal (NORMAL) 11/04/16 22:59 Large Platelets Present 11/04/16 22:59 Hypochromasia (manual) Slight 11/04/16 22:59 Microcytosis (manual) Slight 11/04/16 22:59 PT 23.7 SECONDS (9.7-12.2) H 11/11/16 06:23 INR 2.1 11/11/16 06:23 APTT 30 SECONDS (21-34) 11/06/16 07:08 pO2 44 mm/Hg (30-55) 11/05/16 01:46 VBG pH 7.46 (7.32-7.43) H 11/05/16 01:46 VBG pCO2 39 mmHg (40-60) L 11/05/16 01:46 VBG HCO3 27.4 mmol/L 11/05/16 01:46 VBG Total CO2 28.9 mmol/L (22-28) H 11/05/16 01:46 VBG O2 Sat (Calc) 88.2 % (40-65) H 11/05/16 01:46 VBG Base Excess 3.7 mmol/L (0.0-2.0) H 11/05/16 01:46 VBG Potassium 3.6 mmol/L (3.6-5.2) 11/05/16 01:46 Sodium 137.0 mmol/l (132-148) 11/05/16 01:46 Chloride 101.0 mmol/L (98-107) 11/05/16 01:46 Glucose 155 mg/dl (65-105) H 11/05/16 01:46 Lactate 2.1 mmol/L (0.7-2.1) 11/05/16 01:46 Sodium 139 mmol/L (132-148) 11/11/16 06:23 Potassium 3.0 mmol/L (3.6-5.2) L 11/11/16 06:23 Chloride 99 mmol/L (98-107) 11/11/16 06:23 Carbon Dioxide 27 mmol/L (22-30) 11/11/16 06:23 Anion Gap 16 (10-20) 11/11/16 06:23 BUN 18 mg/dL (7-17) H 11/11/16 06:23 Creatinine 0.9 MG/DL (0.7-1.2) 11/11/16 06:23 Est GFR ( Amer) > 60 11/11/16 06:23 Est GFR (Non-Af Amer) > 60 11/11/16 06:23 POC Glucose (mg/dL) 111 mg/dL (65-110) H 11/11/16 17:11 Random Glucose 149 mg/dL (65-105) H 11/11/16 06:23 Calcium 8.4 mg/dl (8.6-10.4) L 11/11/16 06:23 Total Bilirubin 1.2 mg/dL (0.2-1.3) 11/11/16 06:23 Direct Bilirubin 0.3 mg/dL (0.0-0.4) 11/09/16 06:43 AST 47 U/L (14-36) H D 11/11/16 06:23 ALT 56 U/L (9-52) H 11/11/16 06:23 Alkaline Phosphatase 87 U/L (38-126) 11/11/16 06:23 Troponin I 0.0190 ng/mL (0.00-0.120) 11/04/16 22:59 NT-Pro-B Natriuret Pep 664 pg/mL (0-900) 11/04/16 22:59 Total Protein 7.1 g/dL (6.3-8.3) 11/11/16 06:23 Albumin 3.7 g/dL (3.5-5.0) 11/11/16 06:23 Globulin 3.4 gm/dL (2.2-3.9) 11/11/16 06:23 Albumin/Globulin Ratio 1.1 (1.0-2.1) 11/11/16 06:23 Procalcitonin 0.27 NG/ML (0.19-0.49) 11/07/16 11:41 Venous Blood Potassium 3.6 mmol/L (3.6-5.2) 11/05/16 01:46 Urine Color Yellow (YELLOW) 11/05/16 01:43 Urine Clarity Clear (Clear) 11/05/16 01:43 Urine pH 7.0 (5.0-8.0) 11/05/16 01:43 Ur Specific [place] 1.009 (1.003-1.030) 11/05/16 01:43 Urine Protein 1+ mg/dL (NEGATIVE) H 11/05/16 01:43 Urine Glucose (UA) Normal mg/dL (Normal) 11/05/16 01:43 Urine Ketones Negative mg/dL (NEGATIVE) 11/05/16 01:43 Urine Blood Negative (NEGATIVE) 11/05/16 01:43 Urine Nitrate Positive (NEGATIVE) H 11/05/16 01:43 Urine Bilirubin Negative (NEGATIVE) 11/05/16 01:43 Urine Urobilinogen Normal mg/dL (0.2-1.0) 11/05/16 01:43 Ur Leukocyte Esterase 3+ Ben/uL (Negative) H 11/05/16 01:43 Urine WBC (Auto) 97 /hpf (0-5) H 11/05/16 01:43 Urine RBC (Auto) 4 /hpf (0-3) H 11/05/16 01:43 Ur Squamous Epith Cells < 1 /hpf (0-5) 11/05/16 01:43 Urine Bacteria Rare (<OCC) 11/05/16 01:43 Vancomycin Trough 22.1 ug/mL (5.0-10.0) H 11/07/16 13:32 Random Vancomycin 17.79 ug/mL 11/08/16 06:54 Digoxin 0.9 ng/mL (0.8-2.0) 11/04/16 23:06 C. difficile Ag & Toxin Negative (NEGATIVE) 11/07/16 06:00 Hepatitis A IgM Ab Negative (NEGATIVE) 11/07/16 11:23 Hep Bs Antigen Negative (NEGATIVE) 11/07/16 11:23 Hep B Core IgM Ab Negative (NEGATIVE) 11/07/16 11:23 Hepatitis C Antibody Negative (NEGATIVE) 11/07/16 11:23 - Hospital Course Hospital Course: Patient was treated with IV antibiotics for right lower extremity cellulitis. Potassium was aggressively replaced for hypokalemia. Right lower extremity Doppler was negative for DVT. Patient responded nicely to treatment with IV antibiotics. Discharge Exam - Head Exam Head Exam: NORMAL INSPECTION - Eye Exam Eye Exam: Normal appearance - ENT Exam ENT Exam: Mucous Membranes Moist - Respiratory Exam Respiratory Exam: Clear to PA & Lateral - Cardiovascular Exam Cardiovascular Exam: REGULAR RHYTHM - GI/Abdominal Exam GI & Abdominal Exam: Normal Bowel Sounds, Soft - Extremities Exam Additional comments: Improved right lower extremity redness Discharge Plan - Discharge Medications Prescriptions: Warfarin [Coumadin] 8 mg PO DAILY #30 tab Potassium Chloride [K-Dur 20] 20 meq PO BID #60 tab - Follow Up Plan Condition: GOOD Disposition: HOME/ ROUTINE Instructions: Potassium Chloride (By mouth), Warfarin (By mouth), Cellulitis ( DC), Heart Healthy Diet (GEN), Diabetic Foot Care (DC), Basic Carbohydrate Counting (DC), Meal Planning with the Plate Method (DC), Meal Planning with Diabetes Exchanges (DC) Additional Instructions: FOLLOW UP WITH YOUR PRIMARY DOCTOR NEXT WEEK (MONDAY OR MONDAY)---CALL FOR APPT TIME. CONTINUE TWICE DAILY POTASSIUM. CONTINUE WARFARIN AT 8 MG DAILY AT 6PM. CONTINUE YOUR OTHER HOME MEDS USUAL. FOR FURTHER QUESTIONS CONTACT YOUR DOCTOR. Referrals: Beth Major MD [Staff Provider] - Srinivasan Regalado MD [Staff Provider] - Wicho Nazario MD [Staff Provider] -
== END 2016-11-11 18:38 | disposition home or self-care (01) | DRG 603 ==
LOC: C.ER 21:59 → C.6T 11-05 00:14
PROVIDERS: ADMIT Internal Medicine Critical Care Medicine; ATTEND Internal Medicine Critical Care Medicine
DX: L03.115 Cellulitis of right lower limb (principal); E11.628 Type 2 diabetes mellitus with other skin complications; I48.91 Unspecified atrial fibrillation; E11.9 Type 2 diabetes mellitus without complications; I10 Essential (primary) hypertension; B95.62 Methicillin resistant Staphylococcus aureus infection as the cause of diseases classified elsewhere; J45.909 Unspecified asthma, uncomplicated; E78.00 Pure hypercholesterolemia, unspecified; E03.9 Hypothyroidism, unspecified; M06.9 Rheumatoid arthritis, unspecified; G47.30 Sleep apnea, unspecified; Z79.4 Long term (current) use of insulin; R19.7 Diarrhea, unspecified; Z79.01 Long term (current) use of anticoagulants; Z96.653 Presence of artificial knee joint, bilateral

== ENCOUNTER 2017-01-16 18:26 | Emergency (ER) | payer MEDICARE ==
[2017-01-16 18:26] VITALS: PULSE 72; BMI 29.5
--- NOTE | 2017-01-16 23:53 | C.PDOC ---
History Of Present Illness 71 year old female, with a past surgical history of bilateral knee replacement years prior, presents to the ED with complaints of bilateral knee pain since injuring both knees yesterday. Patient denies weakness, numbness, or other injuries. Chief Complaint (Nursing): Lower Extremity Problem/Injury History Per: Patient History/Exam Limitations: no limitations Onset/Duration Of Symptoms: Days (1 day ) Current Symptoms Are (Timing): Still Present Recent travel outside of the [place]: No Past Medical History Reviewed: Historical Data, Nursing Documentation, Vital Signs Vital Signs: Last Vital Signs Temp 98 F 01/17/17 00:06 Pulse 86 01/17/17 00:06 Resp 20 01/17/17 00:06 BP 117/58 L 01/17/17 00:06 Pulse Ox 95 01/17/17 00:06 - Medical History PMH: Asthma, Atrial Fibrillation, Bronchitis, Cardia Arrhythmia (atrial fib), Diabetes, Fractures (left hand), HTN, Hypercholesterolemia, Hypothyroidism, Rheumatoid Arthritis, Sleep Apnea - [facility] Procedures ABDOMINAL WALL INCISION (01/07/15) CLOSURE SKIN & SUBCUTANEOUS NEC (08/03/13) DESTRUCT ABD WALL LESION (12/08/14) EXC LES SOFT TISSUE NEC (12/08/14) POST NASAL PAC FOR EPIST (09/18/12) TETANUS TOXOID ADMINIST (08/03/13) Family History: States: Unknown Family Hx, CAD - Social History Hx Tobacco Use: No Hx Alcohol Use: No Hx Substance Use: No - Immunization History Hx Tetanus Toxoid Vaccination: No Hx Influenza Vaccination: No Hx Pneumococcal Vaccination: Yes Review Of Systems Constitutional: Negative for: Fever, Chills Cardiovascular: Negative for: Chest Pain, Palpitations Respiratory: Negative for: Cough, Shortness of Breath Gastrointestinal: Negative for: Nausea, Vomiting, Abdominal Pain, Diarrhea Genitourinary: Negative for: Dysuria, Incontinence Musculoskeletal: Positive for: Leg Pain (bilateral knee pain ) Physical Exam - Physical Exam Appears: Non-toxic, No Acute Distress Skin: Warm, Dry Head: Atraumatic, Normacephalic Eye(s): bilateral: Normal Inspection, PERRL, EOMI Oral Mucosa: Moist Neck: Normal ROM, Supple Chest: Symmetrical, No Deformity Cardiovascular: Rhythm Regular, No Murmur Respiratory: Normal Breath Sounds, No Rales, No Rhonchi, No Wheezing Extremity: Normal ROM (full ROM of bilateral knees ), Tenderness (slight tenderness to bilateral knees), No Pedal Edema, No Calf Tenderness, Capillary Refill (good capillary refill, less than two seconds ), No Deformity, Swelling ( mild swelling to bilateral knees), Other (slight ecchymosis to left knee area) Pulses: Left Dorsalis Pedis: Normal, Right Dorsalis Pedis: Normal Neurological/Psych: Oriented x3, Normal Motor, Normal Sensation ED Course And Treatment O2 Sat by Pulse Oximetry: 98 (room air ) - Other Rad Bilateral Knee X-Ray X-Ray: Interpreted by Me, Viewed By Me Progress Note: Bilateral knee X-Ray was ordered and patient was given Ultram. Disposition Counseled Patient/Family Regarding: Diagnosis - Disposition Referrals: [facility] [Outside] Disposition: HOME/ ROUTINE Disposition Time: 23:51 Condition: STABLE Prescriptions: traMADol/Acetaminophen [Ultracet 325 MG-37.5 MG] 1 tab PO Q6 #14 tab Instructions: Knee Pain (ED) Forms: [employer] (Czech) - POA Present On Arrival: None - Clinical Impression Clinical Impression: Knee pain, bilateral - Scribe Statement The provider has reviewed the documentation as recorded by the Scribe Ciarra Pop All medical record entries made by the Scribe were at my direction and personally dictated by me. I have reviewed the chart and agree that the record accurately reflects my personal performance of the history, physical exam, medical decision making, and the department course for this patient. I have also personally directed, reviewed, and agree with the discharge instructions and disposition.
[2017-01-17 00:07] VITALS: BP 117/58; PULSE 86; RESP 20; TEMP 98
[2017-01-17 00:33] VITALS: O2SAT 98
--- NOTE | 2017-01-17 09:30 | RAD ---
PROCEDURE: Bilateral Knee Radiographs. HISTORY: injury / pain COMPARISON: None. FINDINGS: BONES: Right Knee: . No fracture. Left Knee: . No fracture. JOINTS: Bilateral total knee prosthesis in good alignment SOFT TISSUES: Right Knee: Fewer right varicosities suggested Left Knee: Multiple varicosities are suggested JOINT EFFUSION: Right Knee: Small probable Left Knee: Small probable OTHER FINDINGS: None. IMPRESSION: Status post total knee replacements- in good alignment.
== END 2017-01-17 00:33 | disposition home or self-care (01) ==
LOC: C.ER 18:26
DX: M25.562 Pain in left knee (principal); M25.561 Pain in right knee

== ENCOUNTER 2018-05-31 23:51 | Emergency (ER) | payer OTHER, MEDICAID ==
[2018-05-31 23:51] VITALS: PULSE 72; BMI 29.5
[2018-06-01] MEDS ORDERED: Phenylephrine 1% Nasal Spray (15 ml) NAS STA (00:06)
--- NOTE | 2018-06-01 00:10 | C.PDOC ---
History Of Present Illness Patient seen tonite due to reccurent episode of left sided nose bleed. Presently has no nose blleed. Chief Complaint (Nursing): ENT Problem History Per: Patient History/Exam Limitations: None Onset/Duration Of Symptoms: Intermittent Episodes Current Symptoms Are (Timing): Gone Symptoms Have Been: Episodic Severity: None Pain Scale Rating Of: 0 Anticoagulant/Antiplatlet Use?: Yes Recent Aspirin Use: No Past Medical History Vital Signs: Last Vital Signs Temp 98.1 F 05/31/18 23:55 Pulse 71 05/31/18 23:55 Resp 20 05/31/18 23:55 BP 147/71 05/31/18 23:55 Pulse Ox 100 05/31/18 23:55 - Medical History PMH: Asthma, Atrial Fibrillation, Bronchitis, Cardia Arrhythmia (atrial fib), Diabetes, Fractures (left hand), HTN, Hypercholesterolemia, Hypothyroidism, Rheumatoid Arthritis, Sleep Apnea Denies: Chronic Kidney Disease - [facility] Procedures ABDOMINAL WALL INCISION (01/07/15) CLOSURE SKIN & SUBCUTANEOUS NEC (08/03/13) DESTRUCT ABD WALL LESION (12/08/14) EXC LES SOFT TISSUE NEC (12/08/14) POST NASAL PAC FOR EPIST (09/18/12) TETANUS TOXOID ADMINIST (08/03/13) Family History: States: Unknown Family Hx, CAD - Social History Hx Tobacco Use: No Hx Alcohol Use: No Hx Substance Use: No - Immunization History Hx Tetanus Toxoid Vaccination: Yes Hx Influenza Vaccination: Yes Hx Pneumococcal Vaccination: Yes Review Of Systems Constitutional: Negative for: Fever, Chills, Sweats ENT: Negative for: Nose Pain, Nose Discharge, Nose Congestion, Throat Pain, Throat Swelling Cardiovascular: Negative for: Chest Pain, Palpitations, Orthopnea, Paroxysmal Noc. Dyspnea Respiratory: Negative for: Cough, Shortness of Breath, Hemoptysis Gastrointestinal: Negative for: Nausea, Vomiting, Abdominal Pain Physical Exam - Physical Exam Appears: Non-toxic, No Acute Distress Skin: Normal Color Head: Atraumatic Eye(s): bilateral: Normal Inspection, PERRL, EOMI Nose: No Epistaxis, No Deformity, No Tenderness, Other (slight left nasal mucosal congestion) Oral Mucosa: Moist Tongue: Normal Appearing Lips: Normal Appearing Gingiva: Normal Appearing Throat: Normal, Other (no post nasal blood noted) Neck: Normal Cardiovascular: Rhythm Irregular Respiratory: Normal Breath Sounds Gastrointestinal/Abdominal: Normal Exam Back: Normal Inspection ED Course And Treatment - Laboratory Results Result Diagrams: 06/01/18 00:40 06/01/18 00:40 O2 Sat by Pulse Oximetry: 100 Disposition Doctor Will See Patient In The: Hospital Counseled Patient/Family Regarding: Diagnosis - Disposition Referrals: [facility] MD [Medical Doctor] - Disposition: HOME/ ROUTINE Disposition Time: 01:24 Condition: STABLE Instructions: Nosebleeds (DC) Forms: [facility] ([place]) - POA Present On Arrival: None - Clinical Impression Clinical Impression: Bleeding from the nose
[2018-06-01] MEDS ORDERED: Phenylephrine 1% Nasal Spray (15 ml) ONE (00:38)
[2018-06-01 00:44] LABS: BASO # 0.1 K/uL (0.0-0.2); BASO % 0.8 % (0.0-2.0); EOS # 0.2 K/uL (0.0-0.7); EOS % 2.1 % (0.0-4.0); HEMOGLOBIN 13.8 g/dL (11.0-16.0); LYMPH # 1.9 K/uL (1.0-4.3); LYMPH % 18.8 % (20.0-40.0); MEAN CELL VOLUME 89.9 fL (81.0-99.0); MEAN CORPUSCULAR HEMOGLOBIN 30.2 pg (27.0-31.0); MEAN CORPUSCULAR HGB CONC 33.6 g/dL (33.0-37.0); MEAN PLATELET VOLUME 9.5 fL (7.2-11.7); MONO # 0.7 K/uL (0.0-0.8); MONO % 6.7 % (0.0-10.0); NEUT # 7.3 K/uL (1.8-7.0); NEUT % 71.6 % (50.0-75.0); RBC 4.56 Mil/uL (3.80-5.20); RED CELL DISTRIBUTION WIDTH 15.5 % (11.5-14.5); WHITE BLOOD COUNT 10.3 K/uL (4.8-10.8)
[2018-06-01 01:00] LABS: INR 1.2; PROTHROMBIN TIME 13.4 SECONDS (9.7-12.2)
[2018-06-01 01:15] LABS: ALB/GLOB RATIO 1.3 (1.0-2.1); ALBUMIN 4.4 g/dL (3.5-5.0); ALT/SGPT 23 U/L (9-52); AST/SGOT 23 U/L (14-36); BLOOD UREA NITROGEN 26 mg/dL (7-17); CALCIUM 8.8 mg/dl (8.6-10.4); GFR NON-AFRICAN AMERICAN 55
[2018-06-01 01:41] VITALS: BP 127/76; PULSE 86; RESP 14; TEMP 98; O2SAT 97
== END 2018-06-01 01:41 | disposition home or self-care (01) ==
LOC: C.ER 23:51
DX: R04.0 Epistaxis (principal)